=== PATIENT | male | born 1950 | race Caucasian/White ===

== ENCOUNTER 2022-12-13 07:40 | Outpatient (REF) | payer OTHER, MEDICARE, SELFPAY ==
--- NOTE | ~2022-12-13 | CT_ITS ---
EXAMINATION: CT ABDOMEN AND PELVIS WITH CONTRAST CLINICAL INFORMATION: Abdominal pain. Diverticulosis. COMPARISON: Previous CT scans most recent October 2019 TECHNIQUE: Multidetector volumetric images were obtained from the superior aspect of the liver through the pubic symphysis following administration 85 mL of Omnipaque 350 intravenous contrast. Sagittal and coronal reformatted images were obtained on the technologist's workstation. Oral contrast: Yes This CT examination was performed using dose optimization techniques as appropriate, variously including the following: *Automated exposure control *Adjustment of mA and/or kV according to patient size (this includes techniques or standardized protocols for targeted exams where dose is matched to indication/reason for exam; i.e. extremities or head) *Use of iterative reconstruction technique DLP: 600 mGy-cm FINDINGS: LUNG BASES: The visualized lung bases are unremarkable. LIVER, GALLBLADDER, AND BILIARY TREE: The liver is normal in size, shape, and attenuation. No focal hepatic lesion or biliary ductal dilatation is present. The gallbladder is unremarkable with no evidence of radiopaque gallstones, gallbladder wall thickening, or obvious pericholecystic inflammatory changes. PANCREAS: Unremarkable. SPLEEN: Unremarkable. ADRENAL GLANDS: Unremarkable. KIDNEYS AND URETERS: The kidneys are normal in size, shape, and attenuation. No hydronephrosis, hydroureter, or calculi seen. No perinephric stranding. BLADDER: Unremarkable. GASTROINTESTINAL TRACT: There is diverticulosis of the colon. There is a short segment of bowel wall thickening and increased enhancement of the transverse colon for example axial image 40 series 3 questionable for mild diverticulitis. No evidence of obstruction, perforation or abscess. Small and large bowel is otherwise normal. The appendix is normal. The stomach is normal ABDOMINAL WALL: No significant hernia is appreciated. LYMPH NODES: Normal. VASCULAR: Unremarkable. PELVIC VISCERA: The prostate gland is enlarged and protrudes into the base of the bladder. OSSEOUS STRUCTURES: There are degenerative changes of the spine. CT/CT abdomen pelvis w IV con IMPRESSION: Severe diverticulosis. Question mild diverticulitis of a short segment transverse colon. Fleischner guidelines were followed. Findings will be communicated by the [employer] work flow brazer resistance.
[2022-12-13] MEDS: iohexoL 350 MG/ML 100 ML INFUS..BTL IV (08:37)
[2022-12-13 10:00] LABS: GFR POC > 60
== END 2022-12-13 07:41 | disposition home or self-care (01) ==
LOC: HO.CT 07:40
PROVIDERS: Visit Provider Internal Medicine
DX: R10.84 Generalized abdominal pain (principal); K57.90 Diverticulosis of intestine, part unspecified, without perforation or abscess without bleeding
CPT/HCPCS: 74177; 82565; Q9967

== ENCOUNTER 2024-05-22 09:07 | Day surgery (SDC) | payer OTHER, MEDICARE, SELFPAY ==
[2024-05-20 15:45] VITALS: BMI 34.0
--- NOTE | 2024-05-21 08:31 | P.CONAN_ITS ---
Documented by User: Sheryl Merrill NP 05/21/24 08:33 HPI - Anesthesia Eval Consult details Narrative: 74yo M for Colonoscopy [facility] Past Medical History Medical History (Updated 05/20/24 @ 15:41 by Evelyn Sequeira, MECHE) Abdominal pain History of lipoma (~01/2023) History of diverticulosis Elevated PSA Hypothyroidism IBS (irritable bowel syndrome) HTN (hypertension) Asthma Surgical History Surgical History (Updated 05/20/24 @ 15:39 by Evelyn Sequeira, MECHE) Hx of umbilical hernia repair Hx of bilateral inguinal hernia repair Hx of spinal fusion (~05/2014) Hx of hernia repair Hx of prostate biopsy Hx of colonoscopy Social History Social History Are you a primary healthcare business analyst to a significant other at home: No Do you presently have visiting nurse or other home services: No Patient Tobacco Use Status: Former Tobacco user Use of substances other than those prescribed or required for medical reasons: No Have you been hit, kicked, punched, or otherwise hurt by someone within the past year? If so, by whom?: No Are you DNR?: No Advance Directives: No Advance Directives Information Provided: Yes Recently lost weight without trying: No Nutrition Risks: No Nutritional Risk Poor oral hygiene: No Meds Allergies Allergy/AdvReac Type Severity Reaction Status Date / Time No Known Allergies Allergy Verified 05/22/24 09:52 [No Known Allergies*] Home Medications ?Medication ?Instructions ?Recorded ?Confirmed ?Last Taken ?Type amlodipine 10 mg tablet 10 mg PO DAILY 05/20/24 05/22/24 05/22/24 History hyoscyamine sulfate 0.375 mg 0.375 mg PO BID PRN Abdominal 05/20/24 05/22/24 Unknown History tablet,extended release,12 hr Discomfort levothyroxine 100 mcg tablet 100 mcg PO DAILY 05/20/24 05/22/24 05/22/24 History lisinopril 20 mg tablet 20 mg PO DAILY 05/20/24 05/22/24 05/22/24 History tamsulosin 0.4 mg capsule 0.4 mg PO DAILY 05/20/24 05/22/24 05/22/24 History Exam Height,Weight and Vital Signs: Height 5 ft 5 in Weight 92.703 kg Assessment and Plan Assessment Anesthesia Assessment: Chart Reviewed Documented by User: Tej Cervantes MD 05/22/24 11:04 [facility] Past Medical History Medical History (Updated 05/20/24 @ 15:41 by Evelyn Sequeira, RN) Abdominal pain History of lipoma (~01/2023) History of diverticulosis Elevated PSA Hypothyroidism IBS (irritable bowel syndrome) HTN (hypertension) Asthma Family History Family history of problems with anesthesia: No Surgical History Surgical History (Updated 05/20/24 @ 15:39 by Evelyn Sequeira RN) Hx of umbilical hernia repair Hx of bilateral inguinal hernia repair Hx of spinal fusion (~05/2014) Hx of hernia repair Hx of prostate biopsy Hx of colonoscopy History of Problems with Anesthesia: No Social History Social History Are you a primary healthcare business analyst to a significant other at home: No Do you presently have visiting nurse or other home services: No Patient Tobacco Use Status: Former Tobacco user Use of substances other than those prescribed or required for medical reasons: No Have you been hit, kicked, punched, or otherwise hurt by someone within the past year? If so, by whom?: No Are you DNR?: No Advance Directives: No Advance Directives Information Provided: Yes Recently lost weight without trying: No Nutrition Risks: No Nutritional Risk Poor oral hygiene: No Meds Allergies Allergy/AdvReac Type Severity Reaction Status Date / Time No Known Allergies Allergy Verified 05/22/24 09:52 [No Known Allergies*] Home Medications ?Medication ?Instructions ?Recorded ?Confirmed ?Last Taken ?Type amlodipine 10 mg tablet 10 mg PO DAILY 05/20/24 05/22/24 05/22/24 History hyoscyamine sulfate 0.375 mg 0.375 mg PO BID PRN Abdominal 05/20/24 05/22/24 Unknown History tablet,extended release,12 hr Discomfort levothyroxine 100 mcg tablet 100 mcg PO DAILY 05/20/24 05/22/24 05/22/24 History lisinopril 20 mg tablet 20 mg PO DAILY 05/20/24 05/22/24 05/22/24 History tamsulosin 0.4 mg capsule 0.4 mg PO DAILY 05/20/24 05/22/24 05/22/24 History Exam Airway Mallampati Class: II TM Dist: >3cm Neck ROM: Full Heart: ok Lungs: ok Assessment and Plan Assessment Anesthesia Assessment: Anesthesia Plan Discussed Final Anesthetic Review Family History of Problems with Anesthesia: No History of Problems with Anesthesia: No NPO: Yes ASA Class: II Final Preanesthetic Review: No Changes in Pt Med Stat, Meds/Allgs Chart Reviewed, Consent Obtained/Reviewed and Anes Risks/Benef Reviewed Patient Risk: Low Procedure Risk: Low Anesthetic Plan Anesthetic Plan: MAC: and Agree w/ Assess. and Plan Disposition: Standard PACU
[2024-05-22 09:55] VITALS: BMI 32.1
[2024-05-22 10:15] VITALS: BP 134/77; PULSE 78; RESP 15; TEMP 35.9; O2SAT 99
[2024-05-22] MEDS: Lactated Ringers 1,000 ML 100 ML IVCONT (10:16)
[2024-05-22 12:00] VITALS: BP 85/52; PULSE 70; RESP 18; TEMP 36.2; O2SAT 97
--- NOTE | 2024-05-22 12:12 | PM.OP ---
Brief Operative Note Date of Service: 05/22/24 Pre-op diagnosis: Screening Post-op diagnosis: other (Colon mass, colon polyps) Procedure: Colonoscopy to the cecum with bx of mass and submucosal inking, cold snare polypectomy at 50cm, and hot snare polypectomy in ascending colon Surgeon: Ayo Fatima MD Anesthesia: MAC Was an Television News Photographer used for this Procedure?: No Estimated blood loss (mL): 2.0 Pathology: other (A. Colon polyp at 50cm B. Ascending colon polyp C. Mass from 60-70cm) Condition: stable Disposition: PACU
[2024-05-22 12:15] VITALS: BP 99/51; PULSE 69; RESP 18; O2SAT 97
[2024-05-22 12:30] VITALS: BP 110/75; PULSE 68; RESP 18; O2SAT 98
--- NOTE | 2024-05-22 12:30 | ECG_ITS ---
Test Reason : new onset afib Blood Pressure : / mmHG Vent. Rate : 068 BPM Atrial Rate : 000 BPM P-R Int : 000 ms QRS Dur : 086 ms QT Int : 410 ms P-R-T Axes : 000 080 062 degrees QTc Int : 435 ms Atrial fibrillation Abnormal ECG No previous ECGs available Referred By: Tej Cervantes Electronically Signed By:ELLIS ROMAN
[2024-05-22 12:45] VITALS: BP 131/72; PULSE 71; RESP 18; O2SAT 99
[2024-05-22 13:00] VITALS: BP 131/84; PULSE 76; RESP 18; TEMP 36.1; O2SAT 98
--- NOTE | 2024-05-23 00:02 | OP_ITS ---
DATE OF SERVICE: 05/22/2024 SURGEON: Ayo Fatima MD INDICATIONS: The patient presents for evaluation of colorectal cancer screening, personal history of tubular adenomas, and family history of colon cancer. Full consent has been obtained from him for this, including risks of bleeding and perforation. PREOPERATIVE DIAGNOSIS: POSTOPERATIVE DIAGNOSIS: PROCEDURE PERFORMED: Colonoscopy to the cecum with hot snare polypectomy, cold snare polypectomy, biopsies, and marking with submucosal ink x 2. ESTIMATED BLOOD LOSS: COMPLICATIONS: ANESTHESIA: Medication used, monitored anesthesia care. ASSISTANTS: SPECIMENS: PREOPERATIVE DIAGNOSES: Colorectal cancer screening, personal history of tubular adenoma of the colon, colorectal cancer family history. POSTOPERATIVE DIAGNOSES: Colorectal cancer screening, personal history of tubular adenomas of the colon, family history of colon cancer, colon mass, colon polyps, diverticulosis, and internal hemorrhoids. DESCRIPTION OF PROCEDURE: The patient was placed in left lateral decubitus position. The digital rectal exam revealed no abnormalities. The Olympus video pediatric colonoscope was entered into the rectum and advanced to a level of approximately 60 cm. Preparation in the sigmoid and descending colon was poor and advancement to this area was difficult both in relation to the poor prep and his significant diverticulosis. At 60 cm, I visualized a circumferential ulcerated mass, consistent with carcinoma. With some gentle to moderate pressure, I was able to get past it. The lesion itself appeared to be about 5-10 cm in length and was ulcerated with friability. Once I was past lesion, I was able to advance to the ascending colon. Again, the prep in the transverse colon and ascending colon was poor as well with a lot of solid stool. In the ascending colon, there was an approximately 1.5 cm flat, but raised polyp, which was removed by hot snare polypectomy. The polypectomy site appeared clean, without any sign of residual polyp nor bleeding. The polyp was grabbed with the retrieval net and brought out of the patient, but unfortunately only a small piece of polyp tissue remained in the retrieval net for pathology. The scope was re-entered in the rectum and was then advanced back to the site of the polypectomy. Again, advancement was difficult both in relation to the poor prep as well as the mass. I was able to advance into the cecum. The majority of the cecum was well visualized and appeared normal. The ileocecal valve appeared normal. The scope was then slowly withdrawn assessing all mucosal surfaces carefully. Again, the prep was significantly limited in multiple areas of the colon. There was significant diverticulosis from the ascending colon all the way to the sigmoid colon. The mass was again visualized. I placed a submucosal ink francisco just proximal and then just distal to the mass with good markings noted. I then obtained biopsies from the distal portion of the mass. At 50 cm there was an approximately 5 or 6 mm polyp, which was removed by cold snare polypectomy and recovered by suction. The polypectomy site appeared clean, without any sign of residual polyp nor any significant bleeding. In the rectum, the scope was retroflexed visualizing internal hemorrhoids, but no other pathology. The rectal mucosa appeared normal. The scope was straightened and withdrawn from the patient. Of note, in the portion of the colon just proximal to the mass there was an approximately 1 cm polyp. This was not removed given its location near the mass which will be removed surgically.. The patient tolerated the procedure well and was returned to recovery area in stable condition. IMPRESSION: 1. Colon mass consistent with carcinoma, status post biopsies and marking with submucosal ink. 2. Colon polyps. 3. Diverticulosis. 4. Poor prep. 5. Internal hemorrhoids. PLAN: The results of the pathology will be checked. Given the finding of the mass, he will have an outpatient CT scan of the abdomen and pelvis both for staging as well as to try to get a better idea as to the location of the mass. He will require surgical consultation as well. Also, of note, was the fact that the patient was noted to be in a well-controlled atrial fibrillation both prior to the procedure and during the procedure. This was apparently new for him. As such, he will require Cardiology evaluation preoperatively as well. He was advised to not use any aspirin or NSAIDs long-term for the time being given the findings of the mass. I shall check some laboratories including a CEA level. This has all been discussed in detail with the patient and his today. He should undergo repeat colonoscopy within 1 year for followup as well. MD KIT Ocampo/FRIDA / [phone] MTDLucas
== END 2024-05-22 13:33 | disposition home or self-care (01) ==
PROVIDERS: Visit Provider Internal Medicine
PROC: 0DJD8ZZ Inspection of Lower Intestinal Tract, Via Natural or Artificial Opening Endoscopic (ICD-10-PCS; CPT 45378; principal; 2024-05-22 10:30)
DX: Z12.11 Encounter for screening for malignant neoplasm of colon (principal); D12.2 Benign neoplasm of ascending colon; D12.5 Benign neoplasm of sigmoid colon; C18.6 Malignant neoplasm of descending colon; K57.30 Diverticulosis of large intestine without perforation or abscess without bleeding; K64.8 Other hemorrhoids; Z86.010 Personal history of colon polyps; Z80.0 Family history of malignant neoplasm of digestive organs; I10 Essential (primary) hypertension; J45.909 Unspecified asthma, uncomplicated; E03.9 Hypothyroidism, unspecified; Z87.891 Personal history of nicotine dependence; Z79.899 Other long term (current) drug therapy
CPT/HCPCS: 45385; 45380; 45381; 88305; 88341; 88342; 93005; J2704

== ENCOUNTER 2024-05-23 09:24 | Outpatient (REF) | payer OTHER, MEDICARE, SELFPAY ==
--- NOTE | ~2024-05-23 | CT_ITS ---
EXAMINATION: CT ABDOMEN AND PELVIS WITH CONTRAST CLINICAL INFORMATION: Abdominal pain-diverticulitis COMPARISON: CT abdomen pelvis 12/13/2022 TECHNIQUE: Multidetector volumetric images were obtained from the superior aspect of the liver through the pubic symphysis following administration 85 mL of Omnipaque 350 intravenous contrast. Sagittal and coronal reformatted images were obtained on the technologist's workstation. Oral contrast: No This CT examination was performed using dose optimization techniques as appropriate, variously including the following: *Automated exposure control *Adjustment of mA and/or kV according to patient size (this includes techniques or standardized protocols for targeted exams where dose is matched to indication/reason for exam; i.e. extremities or head) *Use of iterative reconstruction technique DLP: 551 mGy-cm FINDINGS: LUNG BASES: Bibasilar atelectasis is present, left greater than right. Extensive coronary calcium is present. The right hemidiaphragm is elevated LIVER, GALLBLADDER, AND BILIARY TREE: The liver is normal in size, shape, and attenuation. No focal hepatic lesion or biliary ductal dilatation is present. The gallbladder is unremarkable with no evidence of radiopaque gallstones, gallbladder wall thickening, or obvious pericholecystic inflammatory changes. PANCREAS: Unremarkable. SPLEEN: Unremarkable. ADRENAL GLANDS: There is an indeterminate 1.7 x 1.2 x 2.1 cm left adrenal mass arising from the medial limb. The right adrenal gland is normal. KIDNEYS AND URETERS: The kidneys are normal in size, shape, and attenuation. No hydronephrosis, hydroureter, or calculi seen. No perinephric stranding. BLADDER: Unremarkable. GASTROINTESTINAL TRACT: Colonic diverticula are present most prominent in the sigmoid and left colon but with scattered diverticula throughout. There is an apple core lesion seen proximal transverse colon with overhanging edges measuring about 5 cm in length. There is some ulceration of the mucosa at this level (3:51 and gilbert images). There is minimal inflammatory change seen in the pericolonic fat which makes diverticulitis less likely as an etiology. The small and large bowel are otherwise unremarkable. The appendix is unremarkable. ABDOMINAL WALL: No significant hernia is appreciated. LYMPH NODES: No retroperitoneal lymphadenopathy seen VASCULAR: Calcific atherosclerotic changes are present in the aorta and iliofemoral vessels. There is no evidence of an abdominal aortic aneurysm. PELVIC VISCERA: There is marked BPH. Seminal vesicles appear unremarkable. OSSEOUS STRUCTURES: Marked degenerative changes are present in the spine. No bony destructive lesions are seen to suggest metastatic disease. CT/CT abdomen pelvis w IV con IMPRESSION: 1. There is a 5 cm long apple-core lesion in the proximal transverse colon with overhanging edges and some ulceration of the mucosa. Findings are most consistent with a colonic neoplasm. Colonoscopy is recommended for further evaluation. 2. No evidence of pulmonary or hepatic metastatic disease. 3. Indeterminate 2.1 cm left adrenal mass. MRI is recommended for further evaluation. 4. Other incidental findings as described above. Fleischner guidelines were followed. Electronically signed by: Anival Rabago MD 05/23/2024 03:57 PM EDT
[2024-05-23 10:16] LABS: MANUAL DIFF FLAG NO
[2024-05-23 10:55] LABS: Basophils Percent Auto 0.5 % (0-2); Eosinophils Absolute Auto 0.1 X10*3/uL (0.0-0.4); Eosinophils Percent Auto 0.9 % (0-4); Hematocrit 46.6 % (42.0-52.0); Hemoglobin 15.8 g/dl (14.0-18.0); Imm Gran Abs Auto 0.02 X10*3/uL (0.00-0.03); Imm Gran Pct Auto 0.3 % (0.0-0.4); Lymphocytes Absolute Auto 1.9 X10*3/uL (1.2-4.9); Lymphocytes Percent Auto 28.7 % (20-40); Mean Corpuscular HGB Conc 33.9 g/dl (31.0-36.0); Mean Corpuscular Hemoglobin 29.9 pg (27.0-33.0); Mean Corpuscular Volume 88.1 fL (80.0-98.0); Mean Platelet Volume 9.4 fL (9.4-12.4); Monocytes Absolute Auto 0.5 X10*3/uL (0.1-1.2); Monocytes Percent Auto 7.5 % (2-11); Neutrophils Absolute Auto 4.1 x10*3/uL (2.0-8.3); Neutrophils Percent Auto 62.1 % (45-73); Platelet Count 212 X10*3/uL (160-400); Red Blood Count 5.29 X10*6/uL (4.60-5.80); Red Cell Distribution Width 13.2 % (11.0-16.0); White Blood Count 6.5 X10*3/uL (4.8-10.8)
[2024-05-23 11:33] LABS: Alanine Aminotransferase 14 U/L (0-40); Albumin Level 4.1 g/dL (3.5-5.0); Alkaline Phosphatase 71 U/L (39-117); Anion Gap 12 (12-20); Aspartate Amino Transferase 14 U/L (5-37); Bilirubin Direct 0.2 mg/dL (0.0-0.5); Bilirubin Total 0.6 mg/dL (0.0-1.0); Blood Urea Nitrogen 9 mg/dL (9-16); Calcium 9.9 mg/dL (8.4-10.2); Carbon Dioxide 25 mmol/L (22-29); Chloride 110 mmol/L (96-108); Estimated Glomerular Filt Rate > 60; Glucose Random 89 mg/dL (60-115); Potassium 3.8 mmol/L (3.3-5.1); Sodium 143 mmol/L (135-145); Total Protein 6.9 g/dL (6.5-8.0)
[2024-05-23] MEDS: iohexoL 350 MG/ML 100 ML INFUS..BTL 85 ML IV (12:16)
[2024-05-23] MEDS: Barium Sulfate Oral (Berry) 450 ML ORAL.SUSP 900 ML PO (12:16)
== END 2024-05-23 09:25 | disposition home or self-care (01) ==
LOC: HO.CT 09:24
PROVIDERS: Visit Provider Internal Medicine
DX: K63.9 Disease of intestine, unspecified (principal)
CPT/HCPCS: 36415; 74177; 80048; 80076; 82378; 85025; Q9967

== ENCOUNTER 2024-05-27 15:11 | Outpatient (AMB) | payer OTHER, MEDICARE, SELFPAY ==
--- NOTE | 2024-05-27 15:17 | A.OFFVIS_ITS ---
Vital Signs 05/27/24 15:24 Height 5 ft 6 in Intake Visit Reasons: Colonic Mass Intake Note: This patient was referred by for colonic mass. Pt c/o; reports no complaints. Abd/pelvis CT- 05/23/2024 Physical Therapy Asst Required: No Accompanied by: Other Relationship Allergies No Known Allergies [No Known Allergies*] Allergy (Verified 05/27/24 15:24) HPI HPI Colonic Mass: Details: 74-year-old male here for a new diagnosis of colon cancer. He had undergone colonoscopy with Dr. Fatima last 05/22/2024 for screening.. He was noted to have a circumferential ulcerated mass, about 5-10 cm long and with friability. Biopsies of this had shown an invasive adenocarcinoma. There was note of a small polyp adjacent to this proximally as well which was not removed. There were 2 other small polyps from the right colon which were removed and the path report had shown tubular adenomas without dysplasia. He does have a family history of colon cancer. He denies any significant GI complaints otherwise. He has a newly diagnosed atrial fibrillation. He is being worked up currently by his fruit or nut grower. He is also an ex-smoker but he says he quit about 2 years ago. [facility] Medical History (Updated 05/27/24 @ 16:12 by Kareem Hough MD) Colon cancer Abdominal pain History of lipoma (~01/2023) History of diverticulosis Elevated PSA Hypothyroidism IBS (irritable bowel syndrome) HTN (hypertension) Asthma Surgical History Hx of umbilical hernia repair Hx of bilateral inguinal hernia repair Hx of spinal fusion (~05/2014) Hx of hernia repair Hx of prostate biopsy Hx of colonoscopy Social History Are you a primary physician assistant primary care to a significant other at home: No Do you presently have visiting nurse or other home services: No Patient Tobacco Use Status: Former Tobacco user Review of Systems Const Denies chills and Denies fever(s) Card Denies chest pain, Denies dyspnea and Denies dyspnea on exertion Resp Denies cough, Denies dyspnea and Denies dyspnea on exertion GI Denies hematochezia and Denies change in bowel habits Denies hematuria and Denies difficulty urinating Musc Denies back pain and Denies limited range of motion Neuro Denies focal weakness and Denies convulsions Psych Denies depression and Denies mood swings Physical Exam Const General: comfortable and no acute distress Orientation/consciousness: patient oriented x3 Neck Neck: Yes no lymphadenopathy Resp Auscultation: clear to auscultation bilaterally Cardio Rhythm: regular rhythm GI Palpation (GI): Soft to palpation, nontender and no guarding Neuro General: patient oriented x3 Assessment & Plan Assessment & Plan (1) Colon cancer: Code(s): C18.9 - Malignant neoplasm of colon, unspecified Category: Medical Plan: He has a newly diagnosed colon cancer, invasive adenocarcinoma on the proximal transverse colon as described above. I have reviewed his CAT scan. There is does not seem to be any suggestion of metastatic disease. I explained to him that I am recommending an extended right colon resection, hand assisted laparoscopic. I explained to him the technique of this procedure. I had a long discussion with him and his about the risks including but not limited to bleeding, infections, staple line leak, injury to other organs, perioperative risks NV, strokes and blood clots, conversion to an open procedu re, as well as the benefits and alternatives. He says that he is going to about this. He actually just was diagnosed to have a new atrial fibrillation. His heart rate is within normal at this time. He has seen a fruit or nut grower and is supposed to have an echocardiogram tomorrow. He says that he will call me about his decision with regards to the surgery. Coding Level of Care Code New Pt Level 4 (66003) Diagnoses Colon cancer C18.9
== END 2024-05-27 15:54 | disposition home or self-care (01) ==
PROVIDERS: Visit Provider Surgery
DX: C18.9 Malignant neoplasm of colon, unspecified (principal)
CPT/HCPCS: 99204

== ENCOUNTER → 2024-05-27 15:11 | Outpatient (BNVA) | payer OTHER, MEDICARE, SELFPAY | PROVIDERS: Visit Provider Surgery ==

== ENCOUNTER 2025-07-02 06:21 | Day surgery (SDC) | payer OTHER, MEDICARE, SELFPAY ==
--- OUTSIDE RECORDS SUMMARY | 2024-02-07 07:30 | XMS_ITS ---
Author Organization [facility] Address [address] [place] [address] Drive [address] [place] [id number] Care Team Providers Care Asbestos Siding Installer Name Role Phone RUTHANN VIDAL Primary Care Provider Ayo Villafana [phone] REASON FOR VISIT colon screening Encounters Encounter Location Date Provider Diagnosis [facility] [place] Out[place] [address] [place] [phone] 02/07/2024 Ayo Fatima Plan Of Treatment Next Appt Details Provider Name:Ayo Fatima , 06/10/2025 10:00:00 AM, [address] [place] [address], [address], [place], [address], Provider Name:Ayo Fatima , 07/02/2025 07:30:00 AM, [address] [place] [address], [phone], Progress Notes * EVELIA ETIENNEDOB: [birth year] (75 yo M)Acc No.[id number]:02/07/2024 COLON WITH MAC Patient: ETIENNE SANTOS Provider: Jacquie Fatima MD :1950 A ge:73 Y S ex:Male Date:02/07/2024 Address:[address] [place] [address] [facility] [id number] Pcp:RUTHANN VIDAL Subjective: * Chief Complaints: * 1 . Colon screening. * Medical History: Objective: * Vitals: Assessment: Plan: * Treatment: * * The named appointment provid er may or may not be the originator of this progress note, and it is not deemed complete until electronically signed by the appointment provider. Sign off status: Pending * Provider: Jacquie Fatima MD Date: 0 02/07/2024 Generated for Yuliya canales/Wilberto/Francoisitting on: 0 05/13/2025 11:08 AM EDT
--- OUTSIDE RECORDS SUMMARY | 2024-05-22 06:30 | XMS_ITS ---
Author Organization [facility] Address [address] [place] [address] Care Team Providers Care Advertising Display Rotator Name Role Phone VIDALRUTHANN KAISER Primary Care Provider Ayo Villafana [phone] REASON FOR VISIT screening Problems Problem Type SNOMED Code ICD Code Onset Dates Problem Status W/U Status Risk Notes Problem Malignant neoplasm of colon (120283341) Malignant neoplasm of colon, unspecified (C18.9) Active confirmed Problem Diverticular disease of colon (370254481) Diverticulosis of large intestine without perforation or abscess without bleeding (K57.30) Active confirmed Encounters Encounter Location Date Provider Diagnosis [facility] [place] Outpatient [address] [place] [phone] 05/22/2024 Ayo Fatima Colon cancer scree rudy Z12.11 ; Malignant neoplasm of colon, unspecified C18.9 ; Colon polyps K63.5 ; Family history of colon cancer Z80.0 and Diverticulosis of large intestine without perforation or abscess without bleeding K57.30 Assessments Encounter Date Diagnosis (ICD Code) Assessment Notes Treatment Notes Treatment Clinical Notes Section Notes 05/22/2024 Colon cancer screening (ICD-10 - Z12.11) 05/22/2024 Malignant neoplasm of colon, unspecified (ICD-10 - C18.9) 05/22/2024 Colon polyps (ICD-10 - K63.5) 05/22/2024 Family history of colon cancer (ICD-10 - Z80.0) 05/22/2024 Diverticulosis of large intestine without perforation or abscess without bleeding (ICD-10 - K57.30) Plan Of Treatment Next Appt Details Provider Name:Ayo Fatima , 06/10/2025 10:00:00 AM, [address] [place] [address], [address], [place], [address], Provider Name:Ayo Fatima , 07/02/2025 07:30:00 AM, [address] [facility] , [place], [place], [phone], Progress Notes * ETIENNE ALTAMIRANODOB: [birth year] (75 yo M)Acc No.[id number]:05/22/2024 COLON WITH MAC Patient: ETIENNE SANTOS Provider: Jacquie Fatima MD :1950 A ge:74 Y S ex:Male Date:05/22/2024 Address:[address] [place], [place] [id number] Pcp:RUTHANN VIDAL Subjective: * Chief Complaints: * 1 . Screening. * Medical History: Objective: * Vitals: Assessment: * Assessment: 1. C olon cancer screening - Z12.11 (Primary) 2 . M alignant neoplasm of colon, unspecified - C18.9 3 . C olon polyps - K63.5 4 . F amily history of colon cancer - Z80.0 5 . D iverticulosis of large intestine without perforation or abscess without bleeding - K57.30 Plan: * Treatment: * Procedure Codes: 4 5385 LESION REMOVAL COLONOSCOPY, Modifiers: 33 , 46002 COLONOSCOPE, SUBMUCOUS INJ, Modifiers: 33 , 28201 COLONOSCOPY AND BIOPSY, Modifiers: 59 , 33 * * The named appointment provid er may or may not be the originator of this progress note, and it is not deemed complete until electronically signed by the appointment provider. Sign off status: Pending * Provider: Jcaquie Fatima MD Date: 0 05/22/2024 Generated for Yuliya canales/Wilberto/Francoisitting on: 05/13/2025 11:07 AM EDT
--- OUTSIDE RECORDS SUMMARY | 2025-05-13 11:07 | XMS_ITS | Patient Health Record ---
Author Organization [facility] Address [address] [place] [address] Care Team Providers Care Stroboroma Operator Name Role Phone RUTHANN VIDAL Primary Care Provider Ayo Villafana [phone] Allergies No Known Allergies Results Component Value Reference Range Notes Pathology (Not yet reviewed by provider) Interpretation: Performing Lab:[facility], [address] [place] [phone] Notes/Report: Complete Blood Count Auto Di ff Reviewed date:05/23/2024 04:52:15 PM Interpretation: Performing Lab:[facility], [address] [place] [phone] Notes/Report: White Blood Count 6.5 4.8-10.8 X10*3/uL Red Blood Count 5.29 4.60-5.80 X10*6/uL Hemoglobin 15.8 14.0-18.0 g/dl Hematocrit 46.6 42.0-52.0 % Mean Corpuscular Volume 88.1 80.0-98.0 fL Mean Corpuscular Hemoglobin 29.9 27.0-33.0 pg Mean Corpuscular HGB Conc 33.9 31.0-36.0 g/dl Red Cell Distribution Width 13.2 11.0-16.0 % Platelet Count 212 160-400 X10*3/uL Mean Platelet Volume 9.4 9.4-12.4 fL Neutrophils Percent Auto 62.1 45-73 % Imm Gran Pct Auto 0.3 0.0-0.4 % Lymphocytes Percent Auto 28.7 20-40 % Monocytes Percent Auto 7.5 2-11 % Eosinophils Percent Auto 0.9 0-4 % Basophils Percent Auto 0.5 0-2 % NRBC Pct Auto 0.0 0.0-0.2 /100WBC Neutrophils Absolute Auto 4.1 2.0-8.3 x10*3/u L Imm Gran Abs Auto 0.02 0.00-0.03 X10*3/uL Lymphocytes Absolute Auto 1.9 1.2-4.9 X10*3/u L Monocytes Absolute Auto 0.5 0.1-1.2 X10*3/uL Eosinophils Absolute Auto 0.1 0.0-0.4 X10*3/u L Basophils Absolute Auto 0.0 0.0-0.2 X10*3/uL NRBC Abs Auto 0.000 0.0-0.012 X10*3/uL Liver Panel Reviewed date:05/23/2024 12:34:29 PM Interpretation: Performing Lab:[address] [phone] Notes/Report: Bilirubin Total 0.6 0.0-1.0 mg/dL Bilirubin Direct 0.2 0.0-0.5 mg/dL Aspartate Amino Transferase 14 5-37 U/L Alanine Aminotransferase 14 0-40 U/L Total Protein 6.9 6.5-8.0 g/dL Albumin Level 4.1 3.5-5.0 g/dL Alkaline Phosphatase 71 39-117 U/L Basic Metabolic Panel Reviewed date:05/23/2024 12:34:17 PM Interpretation: Performing Lab:[address] [phone] Notes/Report: Sodium 143 135-145 mmol/L Potassium 3.8 3.3-5.1 mmol/L Chloride 110 96-108 mmol/L Carbon Dioxide 25 22-29 mmol/L Anion Gap 12 12-20 Blood Urea Nitrogen 9 9-16 mg/dL Creatinine 1.06 0.5-1.4 mg/dL Estimated Glomerular Filt Rate > 60 NOTE: For -Bahamian individuals, multiply the result by 1.210. Chronic Kidney Disease: Estimated GFR < 60 mL/min/1.73m2 Severe Kidney Disease: Estimated GFR < 15 mL/min/1.73m2 Glucose Random 89 60-115 mg/dL Calcium 9.9 8.4-10.2 mg/dL Carcinoembryonic Antigen Reviewed date:05/23/2024 12:33:54 PM Interpretation: Performing Lab:[facility], [address] [place] [phone] Notes/Report: Carcinoembryonic Antigen 5.90 CEA Reference Range: 93.4% Non-Smokers = 0.0-3.0 ng/mL 95.6% Smokers = 0.0-5.0 ng/mL CEA Methodology: Sampa Alinity i Chemiluminescent Microparticle Immunoassay (CMIA) CEA testing can have significant value in monitoring of patients with diagnosed malignancies in whom changing concentrations of CEA are observed. Values obtained with different assay methods cannot be used interchangeably. CT abdomen pelvis w con (Not yet reviewed by provider) Interpretation: Performing Lab: Notes/Report: [address] [address] [address] Scan Report Signed with Addenda Patient: Stephen Altamirano MR#: [id number] : 1950 Acct:[id number] Age/Sex: 74 / M ADM Date: 05/23/24 Loc: HO.CT Attending Dr: Ayo Fatima MD Ordering Physician: Ayo Fatima MD Date of Service: 05/23/24 Procedure(s): CT abdomen pelvis w IV con Accession Number(s): [id number] cc: Ayo Fatima MD ADDENDUM ADDENDUM #1 Results Acknowledgement: Results received by Dr. Fatima and confirmed results with Sheryl Baez, director medical surgical, at 4:05 PM. Kary Paige, 05/23/2024 4:06 PM Electronically signed by: Anival Rabago MD 05/24/2024 09:37 AM EDT Addendum Dictated By: Anival Rabago MD Addendum Signed By: <Electronically signed by Anival Rabago MD in OV> 05/24/24936 Addendum Cosigned By: DD/ TD/TT: 05/23/24 EXAMINATION: CT ABDOMEN AND PELVIS WITH CONTRAST CLINICAL INFORMATION: Abdominal pain-diverticulitis COMPARISON: CT abdomen pelvis 12/13/2022 TECHNIQUE: Multidetector volumetric images were obtained from the superior aspect of the liver through the pubic symphysis following administration 85 mL of Omnipaque 350 intravenous contrast. Sagittal and coronal reformatted images were obtained on the technologist's workstation. Oral contrast: No This CT examination was performed using dose optimization techniques as appropriate, variously including the following: *Automated exposure control *Adjustment of mA and/or kV according to patient size (this includes techniques or standardized protocols for targeted exams where dose is matched to indication/reason for exam; i.e. extremities or head) *Use of iterative reconstruction technique DLP: 551 mGy-cm FINDINGS: LUNG BASES: Bibasilar atelectasis is present, left greater than right. Extensive coronary calcium is present. The right hemidiaphragm is elevated LIVER, GALLBLADDER, AND BILIARY TREE: The liver is normal in size, shape, and attenuation. No focal hepatic lesion or biliary ductal dilatation is present. The gallbladder is unremarkable with no evidence of radiopaque gallstones, gallbladder wall thickening, or obvious pericholecystic inflammatory changes. PANCREAS: Unremarkable. SPLEEN: Unremarkable. ADRENAL GLANDS: There is an indeterminate 1.7 x 1.2 x 2.1 cm left adrenal mass arising from the medial limb. The right adrenal gland is normal. KIDNEYS AND URETERS: The kidneys are normal in size, shape, and attenuation. No hydronephrosis, hydroureter, or calculi seen. No perinephric stranding. BLADDER: Unremarkable. GASTROINTESTINAL TRACT: Colonic diverticula are present most prominent in the sigmoid and left colon but with scattered diverticula throughout. There is an apple core lesion seen proximal transverse colon with overhanging edges measuring about 5 cm in length. There is some ulceration of the mucosa at this level (3:51 and gilbert images). There is minimal inflammatory change seen in the pericolonic fat which makes diverticulitis less likely as an etiology. The small and large bowel are otherwise unremarkable. The appendix is unremarkable. ABDOMINAL WALL: No significant hernia is appreciated. LYMPH NODES: No retroperitoneal lymphadenopathy seen VASCULAR: Calcific atherosclerotic changes are present in the aorta and iliofemoral vessels. There is no evidence of an abdominal aortic aneurysm. PELVIC VISCERA: There is marked BPH. Seminal vesicles appear unremarkable. OSSEOUS STRUCTURES: Marked degenerative changes are present in the spine. No bony destructive lesions are seen to suggest metastatic disease. CT/CT abdomen pelvis w IV con IMPRESSION: 1. There is a 5 cm long apple-core lesion in the proximal transverse colon with overhanging edges and some ulceration of the mucosa. Findings are most consistent with a colonic neoplasm. Colonoscopy is recommended for further evaluation. 2. No evidence of pulmonary or hepatic metastatic disease. 3. Indeterminate 2.1 cm left adrenal mass. MRI is recommended for further evaluation. 4. Other incidental findings as described above. Fleischner guidelines were followed. Electronically signed by: Anival Rabago MD 05/23/2024 03:57 PM EDT RP Dictated By: Anival Rabago MD Signed By: <Electronically signed by Anival Rabago MD in OV> 05/23/24 1557 DD/ 1208 TD/TT: 05/23/24 1216 Wool Broker: SS Reason For Referral No Information Medications Medication SIG (Take, Route, Frequency, Duration) Notes Start Date End Date Status LORazepam 0.5 MG 1 tablet at bedtime as needed Orally Once a day only before scans Active Tamsulosin HCl 0.4 MG 1 capsule Orally Once a day Active Levothyroxine Sodium 100 MCG 1 tablet on an empty stomach in the morning Orally Once a day for 30 day(s) Unknown Prochlorperazine Maleate 10 MG 1 tablet as needed Orally Three times a day Active amLODIPine Besylate 10 MG 1 tablet Orally Once a day for 30 days Unknown Acetaminophen 325 MG 1 capsule as needed Orally every 6 hrs as needed Active Lisinopril 20 MG 1 tablet Orally Once a day for 30 day(s) Unknown Apixaban 5 MG as directed Orally Active Albuterol Sulfate HFA 108 (90 Base) MCG/ACT 1 puff as needed Inhalation every 4 hrs Active Loperamide HCl 2 MG 1 capsule as needed Orally Four times a day Active Calcium Carbonate 1250 (500 Ca) MG 1 tablet with food Orally Twice a day Active Pegfilgrastim-jmdb 6 MG/0.6ML 0.6 mL for 2 doses Subcutaneous Active Hyoscyamine Sulfate 0.125 MG TAKE 1 OR 2 TABLETS BY MOUTH 3 TIMES A DAY NEEDED FOR ABDOMINAL CRAMPS for 90 Active Ondansetron HCl 8 MG 1 tablet as needed Orally Once a day Active Immunizations Vaccine Route Administration Date Status Comme nts Influenza Unknown 05/28/2018 Administered Influenza Unknown 05/17/2022 Administered Social History Tobacco Use: Social History Observation Description Date Details (start date - stop date) Former Smoker NA - NA Tobacco Use/Smoking Question Answer Notes Patient is a former smoker Alcohol Screen Question Answer Notes Did you have a drink contain ing alcohol in the past year? Yes How often did you have a dri nk containing alcohol in the past year? 2 to 3 times a week (3 points) How many drinks did you have on a typical day when you were drinking in the past year? 1 or 2 drinks (0 point) How often did you have 6 or more drinks on one occasion in the past year? Never (0 point) Points 3 Interpretation Negative Section Notes: Smoker 1 ppd No sig alcohol Smoker 1 ppd No sig alcohol Problems Problem Type SNOMED Code ICD Code Onset Dates Problem Status W/U Status Risk Notes Problem 856009841 Colon cancer screening (Z12.11) Active confirmed Problem 78851893 Rectal bleeding (K62.5) Active confirmed Problem 990893338 Encounter for screening for malignant neoplasm of colon (Z12.11) Active confirmed Problem 752174834 History of adenomatous polyp of colon (Z86.010) Active confirmed Problem Malignant neoplasm of colon (029336546) Malignant neoplasm of colon, unspecified (C18.9) Active confirmed Problem Diverticular disease of colon (556701631) Diverticulosis of large intestine without perforation or abscess without bleeding (K57.30) Active confirmed Problem 817465827 Diverticulosis (K57.90) Active confirmed Problem 513701379 Abdominal pain, left lower quadrant (R10.32) Active confirmed Problem History of malignant neoplasm of colon (553755267) Personal history of colon cancer (Z85.038) Active confirmed Problem Mass of colon (finding) (630003088) Colonic mass (K63.9) Active confirmed Problem 842219789 Abdominal pain, generalized (R10.84) Active confirmed Problem 05458533 Irritable bowel syndrome, unspecified type (K58.9) Active confirmed Problem History of polyp of colon (situation) (107746336) Personal history of colonic polyps (Z86.0100) Active confirmed Procedures Procedure Date Ordered Date Performed Result Body Sit e COLONOSCOPY 01/01/2025 N/A Encounters Encounter Location Date Provider Diagnosis [facility] [address]patient [address] [place], [place] [id number] 05/22/2024 Ayo Fatima Colon cancer screeni ng Z12.11 ; Malignant neoplasm of colon, unspecified C18.9 ; Colon polyps K63.5 ; Family history of colon cancer Z80.0 and Diverticulosis of large intestine without perforation or abscess without bleeding K57.30 [facility] [address] [place] [phone] 05/22/2024 Ayo Fatima Colonic mass K63.9 [facility] [address] [place] [phone] 05/24/2024 Ayo Fatima [facility] [address] [place] [phone] 06/07/2024 Ayo Fatima [facility] [address] [place] [phone] 07/23/2024 Ayo Fatima [facility] [address] [place] [phone] 09/11/2024 Ayo Fatima [facility] [address] [place] [phone] 09/11/2024 Ayo Fatima [facility] [address] [place] [phone] 12/27/2024 Ayo Fatima [facility] [address] [place] [id number] 12/31/2024 Ayo Fatima [facility] [address] [place] [phone] 01/01/2025 Ayo Fatima Personal history of colon cancer Z85.038 ; Personal history of colonic polyps Z86.0100 and Encounter for screening for malignant neoplasm of colon Z12.11 [facility] [address] [place] [phone] 01/02/2025 Ayo Fatima Assessments Encounter Date Diagnosis (ICD Code) Assessment Notes Treatment Notes Treatment Clinical Notes Section Notes 05/22/2024 Colon cancer screening (ICD-10 - Z12.11) 05/22/2024 Malignant neoplasm of colon, unspecified (ICD-10 - C18.9) 05/22/2024 Colonic mass (ICD-10 - K63.9) 01/01/2025 Personal history of colon cancer (ICD-10 - Z85.038) 01/01/2025 Personal history of colonic polyps (ICD-10 - Z86.0100) 05/22/2024 Colon polyps (ICD-10 - K63.5) 01/01/2025 Encounter for screening for malignant neoplasm of colon (ICD-10 - Z12.11) 05/22/2024 Family history of colon cancer (ICD-10 - Z80.0) 05/22/2024 Diverticulosis of large intestine without perforation or abscess without bleeding (ICD-10 - K57.30) Plan Of Treatment Pending Test Test Name Order Date COLONOSCOPY 01/01/2025 CHEM 7 PROFILE 11/28/2022 CHEM 7 PROFILE 05/22/2024 LIVER PROFILE 11/28/2022 LIVER PROFILE 05/22/2024 CRP 11/28/2022 CEA 05/22/2024 CBC w DIFF 11/28/2022 CBC w DIFF 05/22/2024 CBC w DIFF 05/15/2023 SED RATE (ESR) 11/28/2022 URINALYSIS + MICROSCOPIC, CLEAN CATCH CT ABD & PELVIS WITH CONTRAST 05/22/2024 CT ABD & PELVIS WITH CONTRAST 11/28/2022 Amylase 11/28/2022 Lipase 11/28/2022 Pathology 05/22/2024 CT abdomen pelvis w con 05/23/2024 Future Test Test Name Order Date COLONOSCOPY 09/11/2018 COLONOSCOPY 05/17/2023 Next Appt Details Provider Name:Ayo Fatima , 06/10/2025 10:00:00 AM, [address] [place] [address], [address], [place], [address], Provider Name:Ayo Fatima , 07/02/2025 07:30:00 AM, [address] [place] [address] , [place], [place], [id number], Insurance Providers Payer Name Payer Address Payer Phone Subscriber Number Group Number Insured Name Patient Relationship to Insured Coverage Start Date Coverage End Date [facility] [address] ARIANNA ALEJANDRINA [id number] [phone] [id number] STEPHEN POLLACK Self - patient is the insured Medical (General) History Medical History History ICD Code Asthma Hypertension Denies MD,DM,CVA,Lung disease,renal dise ase Colonoscopy 04/2011--1 small tubular adenoma removed; neg colonoscopy in 1999 and 2005 except for hyperplastic polyp; he has diffuse diverticulosis from the sigmoid colon to the ascending colon. IBS Hypothyroidism Elevated PSA--having a prostate biopsy i n 09/2018 Colonoscopy in October of 2018 with a small tubular adenoma removed; his known significant sigmoid diverticular disease was again noted, as well as diffuse diverticular disease involving the more proximal colon. CT scan in November of 2022 bernard sed a question of some mild diverticulitis involving a portion of the transverse colon. He did not need antibiotics at that time as his symptoms resolved spontaneously. Surgical History Surgery Date(Month/Year) Hernia as a child Spinal fusion--2 discs removed 05/2014 Bilateral Inguinal Hernia and Umbilical Hernia Lipoma on back 01/2023
--- OUTSIDE RECORDS SUMMARY | 2025-05-13 11:07 | XMS_ITS | Encounter Summary ---
Author Organization [facility] Address [address] [place] [id number] Phone Care Team Providers Care Audiometrist Name Role Phone Self-Referred, Patient Unavailable Unavailab Timothy Barahona MD Unavailable Karissa Theodore MD Primary Care Provider Jacob Reza MD Unavailable [phone] Gaye Rao RN Unavailable [email or web address] [email or web address] Tiffanie Vences RN Unavailable [email or web address] Encounter Details Date Type Department Care Team (Late st Contact Info) Description 12/31/2024 Procedure Pass [facility] Angio Interventional Radiology [address] [place] [id number] Social History Tobacco Use Types Packs/Day Years Used Date Smoking Tobacco: Former Cigarettes 2 15 2 021 - 1985 Cigars Smokeless Tobacco: Current Comments:Uses [employer]SHA[employer] nicotine pouch daily Alcohol Use Standard Drinks/Week Comments Yes 3 (1 standard drink = 0.6 oz pur e alcohol) Child or Family Care Answer Date Record ed Do you have problems with on e of the following making it difficult for you to work, study, or receive health care? No 06/06/2024 Education Answer Date Recorded Are you interested in more education? Not on adams e 05/30/2024 Are you concerned about learning? Not on file 05/30/2024 No 05/30/2024 No 05/30/2024 Food Answer Date Recorded Within the past 6 months we worried whether our food would run out before we got money to buy more. Never True 07/12/2024 Within the past 6 months the food we bought just didn't last and we didn't have enough money to get more. Never True Residential Stability Answer Date Recor ded What is your housing situation today? I have arleth jones 07/12/2024 How many times have you move d in the past 12 months? Zero (I did not move) 07/12/2024 Paying for Meds Answer Date Recorded Do you have trouble paying for medicines? No 07/12/2024 Paying Utility Bills Answer Date Record ed Do you have trouble paying your heating or elect ricity bill? No 06/06/2024 Transportation Answer Date Recorded Has the lack of transportati on kept you from medical appointments or from getting medications? No 07/12/2024 Digital Access Answer Date Recorded No 07/12/2024 Yes 07/12/2024 Do you have reliable internet access at home? Ye s 07/12/2024 Do you have a device (e.g., phone, tablet, computer) with a working camera? Yes 07/12/2024 Intimate Partner Violence Answer Date R ecorded Are you denied basic needs s uch as food, clothing, or medical care? No 10/25/2024 In the past 12 months have y ou been in a relationship with a person who hurts, threatens, or tries to control you? No 10/25/2024 Are you denied basic needs s uch as food, clothing, or medical care? No 10/25/2024 In the past 12 months have y ou been in a relationship with a person who hurts, threatens, or tries to control you? No 10/25/2024 Sex and Gender Information Value Date Recorded Sex Assigned at Not on file Legal Sex Male 3:21 PM EDT Gender Identity Not on file Sexual Orientation Not on file documented as of this encounter Plan of Treatment Upcoming Encounters Date Type Department Care Team (Late st Contact Info) Description 07/15/2025 8:10 AM EST Blood Draw Laboratory Services, [facility] [place] [facility] [place] [address] [place] [address] Jacob Reza MD [address] [place] [phone] [email or web address] 07/15/2025 9:00 AM EST Office Visit [facility], [facility] [place] [facility] [place] [address] [address] Jacob Reza MD [address] [place] [address] [email or web address] Scheduled Procedures Name Priority Associated Diagnoses Date/Ti me COLECTOMY RIGHT COMPLEX 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 Visit Diagnoses Not on filedocumented in this encounter Care Teams Audiometrist Relationship Specialty Start Date End Date Karissa Theodore MD [address] [place] [id number] PCP - General Internal Medicine 06/13/24 Self-Referred, Patient 05/28/24 Timothy Trottre MD [address] [place] [address] [email or web address] Surgery 05/30/24 Jacob Reza MD [address] [place] [address] [email or web address] Medical Oncology 07/29/24 Gaye Rao RN [address] [place] [address] [email or web address] Primary Infusion Nurse 10/09/24 Tiffanie Vences, MECHE [address] [place] [address] [email or web address] Associate Infusion Nurse 11/19/24 documented as of this encounter Additional Source Comments The information contained in this document represents components of the legal health record. It is not the complete legal health record.[facility]
--- OUTSIDE RECORDS SUMMARY | 2025-05-13 11:08 | XMS_ITS | Clinical Summary ---
Author Organization [facility] Address [address] [place] [address] [place] [address] Phone Care Team Providers Care Cherry Cutter Name Role Phone Self-Referred, Patient Unavailable Unavailab Timothy Barahona MD Unavailable Karissa Theodore MD Primary Care Provider Jacob Reza MD Unavailable [phone] Gaye Rao RN Unavailable [email or web address] [email or web address] Tiffanie Vences RN Unavailable [email or web address] Allergies Active Allergy Reactions Criticality Noted Date Comments Other Sneezing,Wheezing Medium 07/08/2024 Environmental, cats Medications levothyroxine (SYNTHROID, LEVOTHROID) 100 MCG tablet Take 100 mcg by mouth every morning. Active albuterol (VENTOLIN HFA) 90 mcg/actuation inhaler Inhale 1 puff into the lungs every 6 (six) hours as needed for wheezing. Active fluticasone propionate (FLONASE) 50 mcg/actuation nasal spray 50 mcg by Nasal route daily. 4 Active tamsulosin (FLOMAX) 0.4 mg Cap Take 0.4 mg by mouth daily. Active apixaban (ELIQUIS) 5 mg tablet Take 1 tablet (5 mg total) by mouth 2 (two) times a day. 180 tablet 4 Active lisinopril (PRINIVIL,ZESTRIL ) 20 MG tablet Take 1 tablet (20 mg total) by mouth daily. 4 Active amLODIPine (NORVASC) 10 MG tablet Take 1 tablet (10 mg total) by mouth daily. 4 Active acetaminophen (TYLENOL) 325 mg tablet Take 2 tablets (650 mg total) by mouth every 6 (six) hours as needed. 4 Active LORazepam (ATIVAN) 0.5 MG tablet Take 1 tab po 1 hour prior to scan. May repeat 1 tab po 1/2 hour later, if necessary. Dont drive after taking 5 tablet 5 Active loperamide (IMODIUM) 2 mg capsule Take 4 mg at 1st loose stool, then 2 mg after ea loose stool until max - 8 tabs/24 hr. Call provider for unrelieved diarrhea. 90 capsule 5 Active pegfilgrastim-jmd b (FULPHILA) 6 mg/0.6 mL subcutaneous injection syringeIndication s:Chemotherapy induced neutropenia Inject 0.6 mL (6 mg total) under the skin every 14 (fourteen) days. Give the entire syringe. 4.2 mL 3 5 Active Active Problems Patient Care Coordination No te Formatting of this note migh t be different from the original. [place] : [facility]_ [phone] Fax- [phone] Problem Noted Date Diagnosed Date Vitamin D deficiency 09/10/2024 Rectal bleeding 09/10/2024 Malignant neoplasm of colon 09/10/2024 Irritable bowel syndrome 09/10/2024 Hypothyroidism 09/10/2024 Hyperlipidemia 09/10/2024 History of adenomatous polyp of colon 09/10/2024 Generalized abdominal pain 09/10/2024 Screening for lung cancer 09/10/2024 Elevated PSA 09/10/2024 Diverticulosis 09/10/2024 Diverticulitis 09/10/2024 Mass of colon 09/10/2024 Class 1 obesity 09/10/2024 Accelerated essential hypertension 09/10/2024 Abdominal pain, left lower quadrant 09/10/2024 Benign prostatic hyperplasia 09/10/2024 S/P right colectomy 07/12/2024 Atrial fibrillation and flutter 05/24/2024 Overview (09/10/2024): A fib found at colonoscopy 2023 Encounters Date Type Department Care Team Description 04/01/2025 11:30 AM EDT Office Visit [facility], [facility] at [address] [address] Darleen Evans CNP Malignant neoplasm of transverse colon (Primary Dx) 04/01/2025 7:35 AM EDT - 04/01/2025 11:59 PM EDT Hospital Encounter [address] [address] Jacob Reza MD Discharge Disposition: Home or Self Care 12/31/2024 Procedure Pass [address] [address] from Last 3 Months Immunizations Immunization Administration Dates Next Due Influenza High-Dose Trivalen t Preservative Free IM 07/24/2024(Deferred: Patient Refused) Social History Tobacco Use Types Packs/Day Years Used Date Smoking Tobacco: Former Cigarettes 2 15 2 021 - 1985 Cigars Smokeless Tobacco: Current Tobacco Cessation:Ready to Q uit: Not Asked; Counseling Given: Not Answered Comments:Uses [employer]SHAWN nicotine pouch daily Alcohol Use [...] your housing situation today? I have arleth sing 07/12/2024 How many times have you move [...] on file Sexual Orientation Not on file Last Filed Vital Signs Vital Sign Reading Time Taken Comments Blood Pressure 108/55 04/01/2025 8:47 AM EDT Pulse 73 04/01/2025 8:47 AM EDT Temperature 36.1 C (97 F) 04/01/2025 8:47 AM EDT Respiratory Rate 16 04/01/2025 8:47 AM EDT Oxygen Saturation 98% 04/01/2025 8:47 AM EDT Inhaled Oxygen Concentration 21.7% 05/2025 10:45 AM EST Weight 92.4 kg (203 lb 11.3 oz) 04/01/2025 8:47 AM EDT dfci Height 162.4 cm (5' 3.94 ) 10/08/2024 9:16 AM ES T Body Mass Index 35.03 10/08/2024 9:16 AM EST Plan of Treatment Upcoming Encounters Date Type Department Care Team (Late st Contact Info) Description 07/15/2025 8:10 AM EST Blood Draw Laboratory Services, [facility] [place] [address] [address] Jacob Reza MD [address] [place] [address] [email or web address] [facility] 07/15/2025 9:00 AM EST Office Visit [facility], [facility] at [address] [address] Jacob Reza MD [address] [place] [address] [email or web address]. [facility] Scheduled Procedures Name Priority Associated Diagnoses Date/Ti me COLECTOMY RIGHT COMPLEX Malignant neoplasm of transverse colon Health Maintenance Due Date Last Done Comments LIPID PANEL 1952 TSH LEVEL 1952 DEPRESSION SCREENING 1964 HEPATITIS C SCREENING 1970 PNEUMOCOCCAL VACCINES (50+ years) (1 of 2 - PCV) 1971 COLOGUARD 1997 COLONOSCOPY 1997 COLORECTAL CANCER SCREENING 1997 FIT TEST 1997 FOBT 1997 SIGMOIDOSCOPY 1997 VIRTUAL COLONOSCOPY 1997 RSV VACCINE (1 - Risk 60-74 years 1-dose series) 2012 ZOSTER VACCINES (2 of 2) 08/06/2020 06/11/2020 INFLUENZA VACCINE (#1) 2025 , 06/19/2020, 05/21/2018 COVID-19 VACCINE ( season) 2025 06/02/2021, 11/03/2020, 10/12/2020 BLOOD PRESSURE 10/02/2025 04/01/2025 CREATININE LEVEL 04/01/2026 04/01/2025, 01/2025, 12/17/2024, Additional history exists POTASSIUM LEVEL 04/01/2026 04/01/2025, 05/0 01/2025, 12/17/2024, Additional history exists Adult Td,Tdap Booster 05/21/2028 05/21/2018 SMOKING STATUS SCREENING (Once After 26 Yrs) Completed 10/08/2024 ABDOMINAL AORTIC ANEURYSM (AAA) SCREENING Completed 12/24/2024 HEPATITIS A VACCINES Aged Out No long er eligible based on patient's age to complete this topic HIB VACCINES Aged Out No longer eligi ble based on patient's age to complete this topic MENINGOCOCCAL VACCINES (ACWY) Aged Out No longer eligible based on patient's age to complete this topic MENINGOCOCCAL VACCINES (B) Aged Out N o longer eligible based on patient's age to complete this topic Medical Devices Explanted Type Area Kitchen Food Server Device Identifier Shelf Expiration Date Model / Serial / Lot Port Dignity 6.6fr Infusion Mid Size Attachable Silicone Filled Suture Hole - [id number] Implanted:Qty: 1 on 10/07/2024 by Jules Hartmann PA-C at [facility] Explanted:Qty: 1 on 01/21/2025 by Tiffanie Jaeger PA-C Right: Chest Wall [employer] 12/25/2028 [id number] / / [id number] Description:Rt sided SL mid sized port Procedures Procedure Name Priority Date/Time Associated Diagnosis Comments CT CHEST WITHOUT CONTRAST Routine 04/01/2025 8:31 AM EDT Pneumonitis COMPREHENSIVE METABOLIC PANEL Routine 04/01/2025 7:34 AM EDT Malignant neoplasm of transverse colon HC BLOOD COUNT COMPLETE AUTO&AUTO DIFRNTL WBC Routine 04/01/2025 7:34 AM EDT Malignant neoplasm of transverse colon CARCINOEMBRYONIC ANTIGEN (CEA) Routine 04/01/2025 7:34 AM EDT Malignant neoplasm of transverse colon CT ABDOMEN/PELVIS WITH CONTRAST Routine 12/24/2024 4:19 PM EDT Malignant neoplasm of colon, unspecified part of colon from Last 3 Months or Most Recently Relevant to Health Maintenance Results * CT CHEST WITHOUT CONTRAST (04/01/2025 8:31 AM EDT) Anatomical Region Laterality Modality Chest Computed Tomogra phy Other 04/01/2025 10:1 5 AM EDT Impressions 04/01/2025 11:27 AM EDT 1. Interval decrease in density and conspicuity of right upper and bilateral lower lobe peribronchovascular consolidative and groundglass opacities, likely representing evolving organizing pneumonia. 2. No evidence of metastatic disease in the chest. ATTESTATION: Winnie Gonzales, as teaching physician have reviewed the images, if any, for this patient's exam, and if necessary, have edited the report originally created by Lisa Bender. 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 He completed 6 cycles of adjuvant FOLFOX on 12/19/24. TECHNIQUE: Multidetector CT of the chest was performed without intravenous contrast using tailored dose modulation. COMPARISON: CT CHEST WITH CONTRAST FINDINGS: Devices/Tubes/Lines: Interval removal of right IJ port catheter. Lungs: Interval decrease in previously noted right upper lobe and bilateral lower lobe predominant peribronchovascular consolidative and groundglass opacities (5:101) (5:334). The opacity in the right upper lobe has a reversed halo appearance (5:140). Mild subpleural reticulations and interlobular septal thickening in both lower lobes. Central airways are patent. Mild diffuse bronchial wall thickening. Pleura: No pleural effusion or pneumothorax. Mediastinum: Heart size is normal. No pericardial effusion. Mild aortic valve calcification. Minimal mitral annular calcification. Atherosclerosis of the thoracic aorta. Atrophic thyroid gland. Moderate amount of coronary calcifications. Lymph Nodes: No enlarged supraclavicular, axillary, mediastinal, or hilar lymph nodes. Upper Abdomen: Colonic diverticulosis. Thickening of bilateral adrenal glands. Chest Wall: Mild subcutaneous fat stranding in the right anterior chest wall (3:24), likely related to the removal of port catheter. Bones: Multilevel degenerative changes of the thoracic spine and bilateral glenohumeral joints. Bones are osteopenic. No suspicious lytic or blastic lesions. Procedure Note Winnie Thibodeaux MD - 04/01/2025 CT CHEST WITHOUT CONTRAST Referring clinician's provided indication for this examination in [facility]: *Idiopathic nonspecific interstitial pneumonitis Review of the Electronic Medical Record reveals an additional history of:History of transverse colon cancer status post laparoscopic rightcolectomy on July 12, 2024. He completed 6 cycles of adjuvant FOLFOXon 12/19/24. TECHNIQUE: Multidetector CT of the chest was performed without intravenouscontrast using tailored dose modulation. COMPARISON: CT CHEST WITH CONTRAST FINDINGS: Devices/Tubes/Lines: Interval removal of right IJ port catheter. Lungs: Interval decrease in previously noted right upper lobe andbilateral lower lobe predominant peribronchovascular consolidative andgroundglass opacities (5:101) (5:334). The opacity in the right upper lobehas a reversed halo appearance (5:140). Mild subpleural reticulations andinterlobular septal thickening in both lower lobes. Central airways arepatent. Mild diffuse bronchial wall thickening. Pleura: No pleural effusion or pneumothorax. Mediastinum: Heart size is normal. No pericardial effusion. Mild aorticvalve calcification. Minimal mitral annular calcification. Atherosclerosisof the thoracic aorta. Atrophic thyroid gland. Moderate amount of coronarycalcifications. Lymph Nodes: No enlarged supraclavicular, axillary, mediastinal, or hilarlymph nodes. Upper Abdomen: Colonic diverticulosis. Thickening of bilateral adrenalglands. Chest Wall: Mild subcutaneous fat stranding in the right anterior chestwall (3:24), likely related to the removal of port catheter. Bones: Multilevel degenerative changes of the thoracic spine and bilateralglenohumeral joints. Bones are osteopenic. No suspicious lytic or blasticlesions. IMPRESSION: 1. Interval decrease in density and conspicuity of right upper andbilateral lower lobe peribronchovascular consolidative and groundglassopacities, likely representing evolving organizing pneumonia. 2. No evidence of metastatic disease in the chest. ATTESTATION: Winnie Gonzales, as teaching physician have reviewed theimages, if any, for this patient's exam, and if necessary, have edited thereport originally created by Lisa Benedr. us Jacob Reza MD IM CT CHEST Final Result * (ABNORMAL) Comprehensive metabolic panel (04/01/2025 7:34 AM EDT) SODIUM 139 136 - 145 mmol/L [facility]# [id number] POTASSIUM 4.4 3.4 - 5.1 mmol/L [facility]# [id number] CHLORIDE 106 98 - 107 mmol/L [facility]# [id number] CO2 18(L) 22 - 31 mmol/L [facility]# [id number] BUN 15 6 - 23 mg/dL [facility]# [id number] CREATININE 1.09 0.50 - 1.20 mg/dL [facility]# [id number] GLUCOSE 98 70 - 100 mg/dL [facility]# [id number] ALBUMIN 4.0 3.5 - 5.2 g/dL [facility]# [id number] TOTAL PROTEIN 6.6 6.4 - 8.3 g/dL [facility]# [id number] CALCIUM 8.8 8.8 - 10.7 mg/dL [facility]# [id number] ALKALINE PHOSPHATASE 76 40 - 129 U/L [facility]# [id number] TOTAL BILIRUBIN 0.5 0.2 - 1.2 mg/dL [facility]# [id number] AST 24 <41 U/L [facility]# [id number] ALT 20 <42 U/L [facility]# [id number] GLOBULIN 2.6 2.3 - 4.2 g/dL [facility]# [id number] EGFR 72 >59 mL/min/1.7 3m2 [facility]# [id number] Comment:Estimated glomerular filtration rate calculated using the CKD-EPI refit equation. ANION GAP 15 7 - 17 mmol/L [facility]# [id number] Blood 04/01/2025 7:34 AM EDT 04/01/2025 7:35 AM EDT us Jacob Reza MD LAB BLOOD ORDERABLES Final Re sult [facility]# [id number] [address] [place] [address] * CBC and differential (04/01/2025 7:34 AM EDT) WBC 5.03 4.00 - 10.00 K/uL [facility]# [id number] RBC 5.05 4.50 - 6.40 M/uL [facility]# [id number] HGB 15.5 13.5 - 18.0 g/dL [facility]# [id number] HCT 44.5 40.0 - 54.0 % [facility]# [id number] PLT 173 150 - 450 K/uL [facility]# [id number] MCV 88.1 80.0 - 100.0 fL [facility]# [id number] MCH 30.7 27.0 - 32.0 pg [facility]# [id number] MCHC 34.8 32.0 - 36.0 g/dL [facility]# [id number] RDW 12.5 11.5 - 14.5 % [facility]# [id number] MPV 9.5 8.4 - 12.0 fL [facility]# [id number] NRBC 0.00 0.00 /100 WBCs [facility]# [id number] ABSOLUTE NRBC 0.00 0 K/uL [facility]# [id number] DIFF METHOD Auto [facility]# [id number] NEUTS 54.2 48.0 - 76.0 % [facility]# [id number] LYMPHS 35.8 18.0 - 41.0 % [facility]# [id number] MONOS 7.6 4.0 - 11.0 % [facility]# [id number] EOS 1.6 0.0 - 5.0 % [facility]# [id number] BASOS 0.4 0.00 - 1.50 % [facility]# [id number] % IMMATURE GRANS 0.4 0.00 - 1.00 % [facility]# [id number] ABSOLUTE NEUTS 2.73 1.92 - 7.60 K/uL [facility]# [id number] ABSOLUTE LYMPHS 1.80 0.72 - 4.10 K/uL [facility]# [id number] ABSOLUTE MONOS 0.38 0.16 - 1.10 K/uL [facility]# [id number] ABSOLUTE EOS 0.08 0.00 - 0.50 K/uL [facility]# [id number] ABSOLUTE BASOS 0.02 0.00 - 0.15 K/uL [facility]# [id number] ABS IMMATURE GRANS 0.02 0.00 - 0.10 K/uL [facility]# [id number] Blood 04/01/2025 7:34 AM EDT 04/01/2025 7:35 AM EDT us Jacob Reza MD LAB BLOOD ORDERABLES Final Re sult [facility]# [id number] [address] [place] [id number], [facility] * (ABNORMAL) Carcinoembryonic antigen (CEA) (04/01/2025 7:34 AM EDT) CEA 4.0(H) 0 - 3.7 ng/mL [facility]# [id number] Comment: CEA REFERENCE RANGE: NON-SMOKERS: < 3.8 ng/mL SMOKERS: < 5.0 ng/mL Blood 04/01/2025 7:34 AM EDT 04/01/2025 7:35 AM EDT us Jacob Reza MD LAB BLOOD ORDERABLES Final Re sult [facility]# [id number] [address] [place] [address] * CT ABDOMEN/PELVIS WITH CONTRAST (12/24/2024 4:19 PM EDT) Anatomical Region Laterality Modality Abdomen, Pelvis Computed Tomogra phy Other 12/25/2024 9:45 AM EDT Impressions 12/25/2024 11:35 AM EDT 1. No evidence of metastatic disease in the abdomen or pelvis. 2. Unchanged benign bilateral adrenal nodules, most likely adrenal cortical adenomas. The Radiologist Diagnostic Certainty Scale is a guide that conveys to patients and providers a radiologist's subjective diagnostic confidence: Most likely means very high probability Likely means high probability May represent means intermediate probability Unlikely means low probability Very unlikely means very low probability You can find out more about our efforts to improve the clarity of radiology reports for our patients and providers by visiting [email or web address] ATTESTATION: IJamie, as teaching physician have reviewed the images, if any, for this patient's exam, and if necessary, have edited the report originally created by William Mercer. Narrative 12/25/2024 11:[address] ABDOMEN/PELVIS WITH CONTRAST Referring clinician's provided indication for this examination in Epic: * Colon cancer, assess treatment response; s/p 6 cycles of FOLFOX TECHNIQUE: Multidetector-row CT of the abdomen and pelvis was performed after administration of intravenous contrast using tailored dose modulation techniques. Images were reconstructed in the axial, coronal, and sagittal planes. COMPARISON: NM PET CT SKULL BASE TO MID THIGHS ; CT ABDOMEN OUTSIDE (NO INTERPRETATION) ; CT ABDOMEN/PELVIS OUTSIDE (NO INTERPRETATION) FINDINGS: Lower Chest: CT chest from the same day is reported separately. Liver: No focal lesions. Biliary: No radiopaque gallstone or biliary ductal dilatation. Spleen: Normal. No splenomegaly or focal lesions. Pancreas: No masses or ductal dilatation. Adrenal Glands: Bilateral benign adrenocortical adenomas measuring 1.7 cm on the left (1:27) and 1.3 cm on the right (4:72), unchanged since 12/13/2022. Kidneys/Ureters: No solid masses, stones, or hydronephrosis. Bowel: Status post right steven-colectomy. No dilatation and wall thickening. Colonic diverticulosis. Peritoneum/Retroperitoneum: No masses, pneumoperitoneum, or fluid. Lymph Nodes: No enlarged lymph nodes. Pelvic Organs/Bladder: Underdistended bladder. Prostatomegaly. Vessels: No abdominal aortic aneurysm. Atherosclerosis. Bones/Soft Tissues: No destructive osseous lesions. Multilevel degenerative changes of the visualized spine. Postsurgical changes of anterior abdominal wall. Unchanged cutaneous nodule along the right lateral abdominal wall (1:30). Procedure Note Jamie Guevara MD, MPH - 12/25/2024 CT ABDOMEN/PELVIS WITH CONTRAST Referring clinician's provided indication for this examination in [facility]: *Colon cancer, assess treatment response; s/p 6 cycles of FOLFOX TECHNIQUE: Multidetector-row CT of the abdomen and pelvis was performedafter administration of intravenous contrast using tailored dosemodulation techniques. Images were reconstructed in the axial, coronal,and sagittal planes. COMPARISON: NM PET CT SKULL BASE TO MID THIGHS ; CT ABDOMENOUTSIDE (NO INTERPRETATION) ; CT ABDOMEN/PELVIS OUTSIDE (NOINTERPRETATION) FINDINGS: Lower Chest: CT chest from the same day is reported separately. Liver: No focal lesions. Biliary: No radiopaque gallstone or biliary ductal dilatation. Spleen: Normal. No splenomegaly or focal lesions. Pancreas: No masses or ductal dilatation. Adrenal Glands: Bilateral benign adrenocortical adenomas measuring 1.7 cmon the left (1:27) and 1.3 cm on the right (4:72), unchanged since12/13/2022. Kidneys/Ureters: No solid masses, stones, or hydronephrosis. Bowel: Status post right steven-colectomy. No dilatation and wallthickening. Colonic diverticulosis. Peritoneum/Retroperitoneum: No masses, pneumoperitoneum, or fluid. Lymph Nodes: No enlarged lymph nodes. Pelvic Organs/Bladder: Underdistended bladder. Prostatomegaly. Vessels: No abdominal aortic aneurysm. Atherosclerosis. Bones/Soft Tissues: No destructive osseous lesions. Multileveldegenerative changes of the visualized spine. Postsurgical changes ofanterior abdominal wall. Unchanged cutaneous nodule along the rightlateral abdominal wall (1:30). IMPRESSION: 1. No evidence of metastatic disease in the abdomen or pelvis. 2. Unchanged benign bilateral adrenal nodules, most likely adrenalcortical adenomas. The Radiologist Diagnostic Certainty Scale is a guide that conveys topatients and providers a radiologist's subjective diagnostic confidence: Most likely means very high probability Likely means high probability May represent means intermediate probability Unlikely means low probability Very unlikely means very low probability You can find out more about our efforts to improve the clarity ofradiology reports for our patients and providers by [email or web address] ATTESTATION: IJamie, as teaching physician have reviewed theimages, if any, for this patient's exam, and if necessary, have edited thereport originally created by William Mercer. us Jacob Reza MD IMG CT ABD/PELVIS Final Resul t from Last 3 Months or Most Recently Relevant to Health Maintenance Insurance [facility] PPO MEDICARE PART A & B Member Subscriber Plan / Payer ( fective 2017-Present) Name:Stephen Denise Member ID:[id number] Relation to Subscriber:Self Name:Stephen Denise Subscriber ID:[id number] Payer ID:[id number] Group ID:Not on file Type:Medicare Address: [facility] [address] [place] [id number] [employer] PPO MEDICARE PART A & B [employer] PPO MEDICARE PART A & B [employer] PPO MEDICARE PART A & B [employer] PPO MEDICARE PART A & B [facility] PPO MEDICARE PART A & B Advance Directives For more information, please contact: [phone] (9AM - 5PM [facility], Monday-Monday) * Full Code (Latest Code Status on File) Date Activated Date Inactivated Comments 07/12/2024 9:06 PM Question Answer Comments Code Status Confirmed With: Other (specify below ) Care Teams Cherry Cutter Relationship Specialty Start Date End Date Karissa Theodore MD [address] [facility] [address] [place] [address] PCP - General Internal Medicine 06/13/24 Self-Referred, Patient 05/28/24 Timothy Trotter MD [address] [place] [address] [email or web address] General Surgery 05/30/24 Jacob Reza MD [address] [place] [address] [email or web address] Medical Oncology 07/29/24 Gaye Rao RN [address] [place] [address] [email or web address] Primary Infusion Nurse 10/09/24 Tiffanie Vences, RN [address] [place] [address] [email or web address] Associate Infusion Nurse 11/19/24 Additional Source Comments The information contained in this document represents components of the legal health record. It is not the complete legal health record.[facility]
--- OUTSIDE RECORDS SUMMARY | 2025-05-13 11:08 | XMS_ITS | Encounter Summary ---
Author Organization [facility] Address [address] [place] [address] Phone Care Team Providers Care Diesel Engine Operator Name Role Phone Self-Referred, Patient Unavailable Unavailab Timothy Barahona MD Unavailable Karissa Theodore MD Primary Care Provider Jacob Reza MD Unavailable [phone] Gaye Rao RN Unavailable JACKIE [email or web address] Tiffanie Vences RN Unavailable STU [email or web address] Encounter Details Date Type Department Care Team (Late st Contact Info) Description 12/03/2024 Procedure Pass [facility] [place] [address] [facility] [address] [place] [address] Social History Tobacco Use Types Packs/Day Years [...] 8:10 AM EST Blood Draw Laboratory Services, [facility] [place] [facility] [place] [address] [facility] [address] [place] [address] Jacob Reza MD [address] [place] [address] Judith@[facility] 07/15/2025 9:00 AM EST Office Visit [facility], [facility] [place] [facility] [place] [address] [address] Jacob Reza MD 450 [place] [address] Judith@[facility] Scheduled Procedures Name Priority Associated Diagnoses Date/Ti me COLECTOMY RIGHT COMPLEX 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 Visit Diagnoses Not on filedocumented in this encounter Care Teams Diesel Engine Operator Relationship Specialty Start Date End Date Karissa Theodore MD [address] [place] [address] PCP - General Internal Medicine 06/13/24 Self-Referred, Patient 05/28/24 Timothy Trotter MD [address] [place] [address] GRICELDA@[email or web address] General Surgery 05/30/24 Jacob Reza MD 450 [place] [address] [email or web address] Medical Oncology 07/29/24 Gaye Rao RN 300 [place] [address] FRANCESCA@[email or web address] Primary Infusion Nurse 10/09/24 Tiffanie Vences, MECHE [address] [place] [address] JULIO@[email or web address] [address].[facility] Associate Infusion Nurse 11/19/24 documented as of this encounter Additional Source Comments The information contained in this document represents components of the legal health record. It is not the complete legal health record.[facility]
--- OUTSIDE RECORDS SUMMARY | 2025-05-13 11:08 | XMS_ITS | Encounter Summary ---
Author Organization [facility] Address [address] [place] [address] Phone Care Team Providers Care Cafeteria Server Name Role Phone Self-Referred, Patient Unavailable Unavailab Timothy Barahona MD Unavailable Karissa Theodore MD Primary Care Provider [phone] Jacob Reza MD Unavailable [phone] Gaye Rao RN Unavailable JACKIE [email or web address] Tiffanie Vences RN Unavailable STU [email or web address] Encounter Details Date Type Department Care Team (Late st Contact Info) Description 09/10/2024 Procedure Pass [facility] L[facility] PRU [address] [place] [address] Social History Tobacco Use Types Packs/Day Years [...] as food, clothing, or medical care? No 07/12/2024 In the past 12 months have y ou been in a relationship with a person who hurts, threatens, or tries to control you? No 07/12/2024 Are you denied basic needs s uch as food, clothing, or medical care? No 07/12/2024 In the past 12 months have y ou been in a relationship with a person who hurts, threatens, or tries to control you? No 07/12/2024 Sex and Gender Information Value Date Recorded Sex Assigned at Not on file Legal Sex Male 3:21 PM EDT Gender Identity Not on file Sexual Orientation Not on file documented as of this encounter Plan of Treatment Upcoming Encounters Date Type Department Care Team (Late st Contact Info) Description 07/15/2025 8:10 AM EST Blood Draw Laboratory Services, [facility] [place] [facility] [place] 300 [facility] [address] [place] [address] Jacob Reza MD [address] [place] [address] Judith@[email or web address] 07/15/2025 9:00 AM EST Office Visit [facility], [facility] [place] [facility] [place] [address] [address] Jacob Reza MD 450 [place] [address] Judith@[email or web address] Scheduled Procedures Name Priority Associated Diagnoses Date/Ti me COLECTOMY RIGHT COMPLEX 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 Visit Diagnoses Not on filedocumented in this encounter Care Teams Cafeteria Server Relationship Specialty Start Date End Date Karissa Theodore MD [address] [place] [address] PCP - General Internal Medicine 06/13/24 Self-Referred, Patient 05/28/24 Timothy Trotter MD [address] [place] [address] GRICELDA@[facility] General Surgery 05/30/24 Jacob Reza MD 450 [place] [address] Judith@[email or web address] Medical Oncology 07/29/24 Gaye Rao RN 300 [place] [address] FRANCESCA@[email or web address] [address].[facility] Primary Infusion Nurse 10/09/24 Tiffanie Vences, MECHE 300 [place] [address] JULIO@[email or web address] [address].[facility] Associate Infusion Nurse 11/19/24 documented as of this encounter Additional Source Comments The information contained in this document represents components of the legal health record. It is not the complete legal health record.[facility]
--- OUTSIDE RECORDS SUMMARY | 2025-05-13 11:08 | XMS_ITS ---
Author Name [facility] Organization Unknown Care Team Organization Name Specialty Phone Email Start Date End [facility] te [facility] Karissa Theodore Primary Care 01/02/2023 4
--- OUTSIDE RECORDS SUMMARY | 2025-05-13 11:08 | XMS_ITS | Encounter Summary ---
Author Organization [facility] Address [address] [place] [address] Phone Care Team Providers Care Press Tender Short Goods Name Role Phone Self-Referred, Patient Unavailable Unavailab Timothy Barahona MD Unavailable Karissa Theodore MD Primary Care Provider [phone] Jacob Reza MD Unavailable [phone] Gaye Rao RN Unavailable JACKIE Claudio@[email or web address].[facility] Tiffanie Vences RN Unavailable STU [email or web address].[facility] Encounter Details Date Type Department Care Team (Late st Contact Info) Description 06/13/2024 Procedure Pass [facility] [place] 300 [facility] [address] [place] [address] Social History Tobacco Use Types Packs/Day Years Used Date Smoking Tobacco: Never Assessed Child or Family Care Answer Date Record [...] got money to buy more. Never True 06/06/2024 Within the past 6 months the food we bought just didn't last and we didn't have enough money to get more. Never True Residential Stability Answer Date Recor ded What is your housing situation today? I have arleth jones 06/06/2024 How many times have you move d in the past 12 months? Zero (I did not move) 06/06/2024 Paying for Meds Answer Date Recorded Do you have trouble paying for medicines? No 06/06/2024 Paying Utility Bills Answer Date Record ed Do you have trouble paying your heating or elect ricity bill? No 06/06/2024 Transportation Answer Date Recorded Has the lack of transportati on kept you from medical appointments or from getting medications? No 06/06/2024 Digital Access Answer Date Recorded No 05/30/2024 No 05/30/2024 Reliable internet access at home? Not on file 05/30/2024 Device with a working camera? Not on file Sex and Gender Information Value Date Recorded Sex Assigned at Not on file Legal Sex Male 3:21 PM EDT Gender Identity Not on file Sexual Orientation Not on file documented as of this encounter Plan of Treatment Upcoming Encounters Date Type Department Care Team (Late st Contact Info) Description 07/15/2025 8:10 AM EST Blood Draw Laboratory Services, [facility] [place] at [address] [address] Jacob Reza MD [address] [place] [address] Judith@[email or web address]. [facility] 07/15/2025 9:00 AM EST Office Visit [facility], [facility] [place] at [address] [address] Jacob Reza MD 450 [place] [address] Judith@[email or web address]. 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 Visit Diagnoses Not on filedocumented in this encounter Care Teams Press Tender Short Goods Relationship Specialty Start Date End Date Karissa Theodore MD [address] [facility] [address] [place] [address] PCP - General Internal Medicine 06/13/24 Self-Referred, Patient 05/28/24 Timothy Trotter MD [address] [place] [address] GRICELDA@[email or web address] General Surgery 05/30/24 Jacob eRza MD 450 [place] [address] Judith@[facility] Medical Oncology 07/29/24 Gaye Rao RN 300 [place] [address] FRANCESCA@[email or web address] [address].[place] Primary Infusion Nurse 10/09/24 Tiffanie Vences RN 300 [place] [address] JULIO@[email or web address] [address].[place] Associate Infusion Nurse 11/19/24 documented as of this encounter Additional Source Comments The information contained in this document represents components of the legal health record. It is not the complete legal health record.[facility]
--- OUTSIDE RECORDS SUMMARY | 2025-05-13 11:08 | XMS_ITS | Encounter Summary ---
Author Organization [facility] Address [address] [place] [address] Phone Care Team Providers Care Cherry Picker Operator Name Role Phone Self-Referred, Patient Unavailable Unavailab Timothy Barahona MD Unavailable Karissa Theodore MD Primary Care Provider Jacob Reza MD Unavailable [phone] Gaye Rao RN Unavailable JACKIE Claudio@[email or web address] Tiffanie Vences RN Unavailable STU [email or web address].[facility] Encounter Details Date Type Department Care Team (Late st Contact Info) Description 12/03/2024 Procedure Pass [facility] [place] 300 [facility] [address] [place] [address] Social History Tobacco Use Types [...] 8:10 AM EST Blood Draw Laboratory Services, [facility] [place] [facility] [place] 300 [facility] [address] [place] [address] Jacob Reza MD 450 [place] [address] Judith@[facility] 07/15/2025 9:00 AM EST Office Visit [facility], [facility] [place] [facility] [place] [address] [address] Jacob Reza MD 450 [place] [address] Judith@[facility] Scheduled Procedures Name Priority Associated Diagnoses Date/Ti me COLECTOMY RIGHT COMPLEX 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 Visit Diagnoses Not on filedocumented in this encounter Care Teams Cherry Picker Operator Relationship Specialty Start Date End Date Karissa Theodore MD [address] [place] [address] PCP - General Internal Medicine 06/13/24 Self-Referred, Patient 05/28/24 Timothy Trotter MD [address] [place] [address] GRICELDA@[email or web address] General Surgery 05/30/24 Jacob Reza MD [address] [place] [address] Judith@[facility] Medical Oncology 07/29/24 Gaye Rao RN 300 [place] [address] FRANCESCA@[facility] Primary Infusion Nurse 10/09/24 Tiffanie Vences, MECHE [address] [place] [address] JULIO@[email or web address] [address].[facility] Associate Infusion Nurse 11/19/24 documented as of this encounter Additional Source Comments The information contained in this document represents components of the legal health record. It is not the complete legal health record.[facility]
--- OUTSIDE RECORDS SUMMARY | 2025-05-13 11:08 | XMS_ITS | Encounter Summary ---
Author Organization [facility] Address [address] [place] [address] Phone Care Team Providers Care Armored Vehicle Officer Name Role Phone Self-Referred, Patient Unavailable Unavailab Timothy Barahona MD Unavailable Karissa Theodore MD Primary Care Provider [phone] Jacob Reza MD Unavailable [phone] Gaye Rao RN Unavailable JACKIE [email or web address] Tiffanie Vences RN Unavailable STU [email or web address] Encounter Details Date Type Department Care Team (Late st Contact Info) Description 07/12/2024 Procedure Pass [facility] [address] [place] [address] Social History Tobacco Use Types Packs/Day Years Used Date Smoking Tobacco: Former Cigarettes - 1984 Smokeless Tobacco: Current Comments:Uses KEYSHAWN nicotine pouch daily Alcohol Use Standard Drinks/Week Comments Yes 5 (1 standard drink = 0.6 oz pur [...] on file documented as of this encounter Functional Status * Calculated C-SSRS Risk Score (Lifetime/Recent) Answer Date of Assessment Author No Risk Indicated 07/12/2024 3:32 PM Kishan Alicea, MECHE * Pershing Suicide Severity Rating Scale (Screener/Recent Self-Report) Question Answer Date of Assessment Author 1. Wish to be (Past 1 Month) No 024 3:32 PM Brenden Aliceag, MECHE 2. Non-Specific Active Suici gunjan Thoughts (Past 1 Month) No 07/12/2024 3:32 PM EST Brenden Gonzalez, MECHE 6. Suicidal Behavior (Lifetime) No 3:32 PM EST Brenden Gonzalez, RN documented as of this encounter Plan of Treatment Upcoming Encounters Date Type Department Care Team (Late st Contact Info) Description 07/15/2025 8:10 AM EST Blood Draw Laboratory Services, [facility] at [address] [address] Jacob Reza MD [address] [place] [address] Judith@[facility] 07/15/2025 9:00 AM EST Office Visit [facility], [facility] at [address] [address] Jacob Reza MD [address] [place] [address] Judith@[facility] Scheduled Procedures Name Priority Associated Diagnoses Date/Ti me COLECTOMY RIGHT COMPLEX 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 Visit Diagnoses Not on filedocumented in this encounter Care Teams Armored Vehicle Officer Relationship Specialty Start Date End Date Karissa Theodore MD [address] [place] [address] PCP - General Internal Medicine 06/13/24 Self-Referred, Patient 05/28/24 Timothy Trotter MD [address] [place] [address] [place] [address] GRICELDA@[email or web address] General Surgery 05/30/24 Jacob Reza MD [address] [place] [address] Judith@[email or web address] Medical Oncology 07/29/24 Gaye Rao RN 300 [place] [address] [email or web address] Primary Infusion Nurse 10/09/24 Tiffanie Vences, MECHE [address] [place] [address] JULIO@[email or web address] Associate Infusion Nurse 11/19/24 documented as of this encounter Additional Source Comments The information contained in this document represents components of the legal health record. It is not the complete legal health record.[facility]
--- OUTSIDE RECORDS SUMMARY | 2025-05-13 11:09 | XMS_ITS | Patient Health Record ---
Author Organization [facility] [address] Address [address] [place] [address] Care Team Providers Care Lock Setter Name Role Phone RUTHANN VIDAL Primary Care Provider [phone] RADHA STEEL Unavailable [phone] STEPH HURST Unavailable [phone] Allergies Allergen (clinical drug ingredient) Drug/Non Drug Allergy documented on EMR Reaction Allergy Type Onset Date Status Cat dander Cats (uncoded) Unknown Allergy 10/30/2019 Act cheng Perfume Perfume (uncoded) Unknown Allergy 10/30/2019 A ctive Results Component Value Reference Range Notes EKG Reviewed date:02/03/2025 01:41:01 PM Interpretation: Performing Lab: Notes/Report: ECGDiastolicBP 72 ECGDiastolicBP 72 ECGHr 65 ECGHr 68 ECGPRInterval 0 ECGPRInterval 0 ECGPWaveAxis 1 ECGPWaveAxis 1 ECGQRSDuration 92 ECGQRSDuration 92 ECGQrsWaveAxis 69 ECGQrsWaveAxis 67 ECGQTcInterval 398 ECGQTcInterval 396 ECGQTInterval 390 ECGQTInterval 382 ECGSystolicBP 120 ECGSystolicBP 120 ECGTWaveAxis 47 ECGTWaveAxis 46 RR_DiastolicBP 0 RR_DiastolicBP 0 RR_MaxRRInterval 0 RR_MaxRRInterval 0 RR_MeanHR 0 RR_MeanHR 0 RR_MeanRRInterval 0 RR_MeanRRInterval 0 RR_MinRRInterval 0 RR_MinRRInterval 0 RR_NumBeats 0 RR_NumBeats 0 RR_NumNormalBeats 0 RR_NumNormalBeats 0 RR_SystolicBP 0 RR_SystolicBP 0 EKG Reviewed date:02/03/2025 01:41:01 PM Interpretation: Performing Lab: Notes/Report: ECGDiastolicBP 72 ECGDiastolicBP 72 ECGHr 65 ECGHr 68 ECGPRInterval 0 ECGPRInterval 0 ECGPWaveAxis 1 ECGPWaveAxis 1 ECGQRSDuration 92 ECGQRSDuration 92 ECGQrsWaveAxis 69 ECGQrsWaveAxis 67 ECGQTcInterval 398 ECGQTcInterval 396 ECGQTInterval 390 ECGQTInterval 382 ECGSystolicBP 120 ECGSystolicBP 120 ECGTWaveAxis 47 ECGTWaveAxis 46 RR_DiastolicBP 0 RR_DiastolicBP 0 RR_MaxRRInterval 0 RR_MaxRRInterval 0 RR_MeanHR 0 RR_MeanHR 0 RR_MeanRRInterval 0 RR_MeanRRInterval 0 RR_MinRRInterval 0 RR_MinRRInterval 0 RR_NumBeats 0 RR_NumBeats 0 RR_NumNormalBeats 0 RR_NumNormalBeats 0 RR_SystolicBP 0 RR_SystolicBP 0 Reason For Referral Reason Colon cancer Diagnosis 1 Malignant neoplasm o f colon, unspecified (C18.9) Referral Organization [facility] [address] Referring Provider First Name RUTHANN Referring Provider Last Name VIDAL Referring Provider Speciality Internal M edicine Referred Provider Specialty Gastroentero logy Clinical Notes Anais Boyd 2023 02:37:53 PM >Confirmed with ptJune Diya 06/13 Referral Priority Routine Medications Medication SIG (Take, Route, Frequency, Duration) Notes Start Date End Date Status Lisinopril 20 MG TAKE 1 TABLET BY EVERY DAY; Duration: 90 Active Tamsulosin HCl 0.4 MG 1 capsule Orally O nce a day; Duration: 90 days Active Fluticasone Propionate 50 MCG/ACT SPRAY 1 SPRAY INTO EACH NOSTRIL EVERY DAY; Duration: 90 Active Eliquis 5 MG as directed Orally t wice a day Active LORazepam 0.5 MG Oral; Duration: 2 Days Active amLODIPine Besylate 10 MG TAKE 1 TABLET BY MOUTH EVERY DAY; Duration: 90 Active Hyoscyamine Sulfate ER 0.375 MG 1 tablet Orally every 12 hrs Active ProAir HFA 108 (90 Base) MCG/ACT 1 puff as needed Inhalation every 4 hrs; Duration: 30 days 08/31/2021 Active Levothyroxine Sodium 100 MCG TAKE 1 TABL ET BY MOUTH EVERY DAY IN THE MORNING ON EMPTY STOMACH; Duration: 90 Active Ventolin HFA 108 (90 Base) MCG/ACT 1 puff as needed Inhalation every 4 hrs; Duration: 30 days Active Problems Problem Type SNOMED Code ICD Code Onset Dates Problem Status W/U Status Risk Notes Problem Malignant neoplasm of colon (167658275) Malignant neoplasm of colon, unspecified (C18.9) Active confirmed Problem Vitamin B>12< deficiency anaemia (23682798) Vitamin B12 deficiency anemia, unspecified (D51.9) Active confirmed Problem Hyperlipidemia (69038111) Hyperlipidemia, unspecified (E78.5) Active confirmed Problem Essential hypertension (12629843) Essential (primary) hypertension (I10) Active confirmed Problem Adult health examination (749855151) Encounter for general adult medical examination without abnormal findings (Z00.00) Active confirmed Problem Diverticulitis (72916636) Diverticulitis (K57.92) Active confirmed Problem Hypothyroidism (85869671) Hypothyroidism, unspecified type (E03.9) Active confirmed Problem Benign prostatic hypertrophy without outflow obstruction (443161434) Benign prostatic hyperplasia, unspecified whether lower urinary tract symptoms present (N40.0) Active confirmed Problem Vitamin D deficiency (99185054) Vitamin D deficiency (E55.9) Active confirmed Problem Elevated PSA (654354524) Elevated PSA (R97.20) Active confirmed Problem Accelerated essential hypertension (23172912) Accelerated essential hypertension (I10) Active confirmed Problem Obesity (112097351) Obesity (BMI 30-39.9) (E66.9) Active confirmed Problem Screening for malignant neoplasm of lung (procedure) (796745826) Screening for lung cancer (Z12.2) Active confirmed Problem Hyperlipidemia (11228194) Hyperlipidemia (E78.5) Active confirmed Vital Signs Heart Rate 72 /min 02/03/2025 Blood pressure diastolic 72 mm Hg 02/03/2025 Oximetry 98 % 02/03/2025 Height 65 in 02/03/2025 Blood pressure systolic 120 mm Hg 02/03/2025 Weight 191.5 lbs 02/03/2025 BMI 31.86 kg/m2 02/03/2025 Encounters Encounter Location Date Provider Diagnosis [facility] [address] [address] 05/21/2024 TALAL VIDAL Essential (primary) hypertension I10 ; Hyperlipidemia, unspecified E78.5 ; Elevated PSA R97.20 ; Hypothyroidism, unspecified type E03.9 and Encounter for general adult medical examination without abnormal findings Z00.[address] [facility] [address] [place] [address] 02/03/2025 STEPH HURST Encounter for genera l adult medical examination without abnormal findings Z00.00 ; Encounter for screening for depression Z13.31 ; Encounter for screening for other disorder Z13.89 ; Obesity (BMI 30-39.9) E66.9 ; Other specified counseling Z71.89 ; Essential (primary) hypertension I10 ; Hyperlipidemia, unspecified E78.5 ; Malignant neoplasm of colon, unspecified C18.9 and Encounter for examination of blood pressure without abnormal findings Z01.30 [facility] [address] 05/27/2024 TALAL VIDAL [facility] [address] [address] 05/28/2024 TALAL VIDAL [facility] [address] [place] [address] 07/30/2024 TALAL VIDAL [facility] [address] [place] [address] 09/19/2024 TALAL VIDAL [facility] [address] [place] [address] 05/07/2025 STEPH HURST Assessments Encounter Date Diagnosis (ICD Code) Assessment Notes Treatment Notes Treatment Clinical Notes Section Notes 05/21/2024 Hyperlipidemia, unspecified (ICD-10 - E78.5) Stephen is 74 y/o male with a PMHx of HTN, HLD, hypothyroidism, vitamin D deficiency, and diverticulitis presenting to the office today for a follow-up. Patient is aware of slightly elevated LDL levels, states he does not want any medication for it. Discussed continuation of a healthy lifestyle, and supplemental vitamin D for his deficiency. Patient has colonoscopy set for tomorrow for colorectal cancer screening. Results of low-dose CT scan were reviewed, and revealed no pulmonary nodules. Last labs ~6 months ago, will order CBC, CMP, lipids, TSH, PSA. Patient is set to follow-up in 6 months to dicusss labs and assess medication and lifestyle adherence. 05/21/2024 Essential (primary) hypertension (ICD-10 - I10) Stephen is 74 y/o male with a PMHx of HTN, HLD, hypothyroidism, vitamin D deficiency, and diverticulitis presenting to the office today for a follow-up. Patient is aware of slightly elevated LDL levels, states he does not want any medication for it. Discussed continuation of a healthy lifestyle, and supplemental vitamin D for his deficiency. Patient has colonoscopy set for tomorrow for colorectal cancer screening. Results of low-dose CT scan were reviewed, and revealed no pulmonary nodules. Last labs ~6 months ago, will order CBC, CMP, lipids, TSH, PSA. Patient is set to follow-up in 6 months to dicusss labs and assess medication and lifestyle adherence. 02/03/2025 Encounter for general adult medical examination without abnormal findings (ICD-10 - Z00.00) Stephen is a 74-year-old male with a past medical history of hypertension, hyperlipidemia, asthma, seasonal allergies, hypothyroidism, arthritis, past medical history of skin cancer, diverticulitis, lipoma, colon cancer in remission with stage IIb colon cancer who presents to the office today for a Medicare wellness visit. #Health maintenance: Following with [facility] for colonoscopies as patient does have a history of colon cancer, last flu vaccine was 2020, shingles vaccine 2019, Tdap vaccine 2018, has 3 COVID shots, no RSV shots documented, states that he has had a DEXA scan completed, however no documentation of this. #History of colon cancer:Patient states that he is in full remission of colon cancer at this time. Patient does regularly follow with the [facility] [place] in [place]. Patient was previously seen in their office on 01/02/2025.. #Panic attack: Continue lorazepam as needed #Smoking history:CT chest12/24/24 states no ill-defined peribronchial vascular groundglass and nodular consolidative opacities in both lungs, may represent organizing pneumonia. Possibly drug-related. No convincing evidence of metastatic disease in the chest. #Atrial fibrillation: Patient noted to be in A-fib today on 02/03/2025: Reassuring that patient does follow with cardiology, he is anticoagulated on Eliquis 5 mg tablets twice daily.. Patient educated on ER protocol #Hyperlipidemia: Obtaining fasting blood work #Hypothyroidism: Continue levothyroxine sodium 100 mcg, obtaining fasting blood work #Hypertension: Continue amlodipine besylate 10 mg tablets, lisinopril 20 mg tablets Medicare Wellness Patient is here for a Medicare wellness visit. Complete paperwork was reviewed and updated and has been filed and scan. Depression screen completed. Alcohol AUDIT SCREEN completed. Obesity screen completed. Cardiovascular risk stratification screen completed. Cognition assessed and within reasonable limits Fall risk assessed Discussed healthcare proxy. Discussed [place] order for life sustaining treatment, end-of-life issues, intubation and resuscitation dialysis artificial nutrition and hydration is appropriate. Total time spent was 45 minutes with greater than 50% spent on counseling and coordinating care All questions have been answered to patient's satisfaction. Patient verbalized understanding of diagnosis and treatments explained. Advised to call sooner prior to next visit it any questions/concerns arise. Case discussed with Lyric HUDSON who reviewed the assessment and plan. Chart, medications, labs, vital signs reviewed. Dictation was accomplished with the use of [employer] voice recognition software, which is prone to medical misidentifications and grammatical errors. This are unintentional and the practitioner does try to identify and correct these, but some could still be present. Please do not hesitate to contact practitioner for clarification. 02/03/2025 Encounter for screening for depression (ICD-10 - Z13.31) Stephen is a 74-year-old male with a past medical history of hypertension, hyperlipidemia, asthma, seasonal allergies, hypothyroidism, arthritis, past medical history of skin cancer, diverticulitis, lipoma, colon cancer in remission with stage IIb colon cancer who presents to the office today for a Medicare wellness visit. #Health maintenance: Following with [facility] for colonoscopies as patient does have a history of colon cancer, last flu vaccine was 2020, shingles vaccine 2019, Tdap vaccine 2017, has 3 COVID shots, no RSV shots documented, states that he has had a DEXA scan completed, however no documentation of this. #History of colon cancer:Patient states that he is in full remission of colon cancer at this time. Patient [facility] [place] in [place]. Patient was previously seen in their office on 01/02/2025.. #Panic attack: Continue lorazepam as needed #Smoking history:CT chest12/24/24 states no ill-defined peribronchial vascular groundglass and nodular consolidative opacities in both lungs, may represent organizing pneumonia. Possibly drug-related. No convincing evidence of metastatic disease in the chest. #Atrial fibrillation: Patient noted to be in A-fib today on 02/03/2025: Reassuring that patient does follow with cardiology, he is anticoagulated on Eliquis 5 mg tablets twice daily.. Patient educated on ER protocol #Hyperlipidemia: Obtaining fasting blood work #Hypothyroidism: Continue levothyroxine sodium 100 mcg, obtaining fasting blood work #Hypertension: Continue amlodipine besylate 10 mg tablets, lisinopril 20 mg tablets Medicare Wellness Patient is here for a Medicare wellness visit. Complete paperwork was reviewed and updated and has been filed and scan. Depression screen completed. Alcohol AUDIT SCREEN completed. Obesity screen completed. Cardiovascular risk stratification screen completed. Cognition assessed and within reasonable limits Fall risk assessed Discussed healthcare proxy. Discussed [place] order for life sustaining treatment, end-of-life issues, intubation and resuscitation dialysis artificial nutrition and hydration is appropriate. Total time spent was 45 minutes with greater than 50% spent on counseling and coordinating care All questions have been answered to patient's satisfaction. Patient verbalized understanding of diagnosis and treatments explained. Advised to call sooner prior to next visit it any questions/concerns arise. Case discussed with Lyric HUDSON who reviewed the assessment and plan. Chart, medications, labs, vital signs reviewed. Dictation was accomplished with the use of [employer] voice recognition software, which is prone to medical misidentifications and grammatical errors. This are unintentional and the practitioner does try to identify and correct these, but some could still be present. Please do not hesitate to contact practitioner for clarification. 02/03/2025 Encounter for screening for other disorder (ICD-10 - Z13.89) Stephen is a 74-year-old male with a past medical history of hypertension, hyperlipidemia, asthma, seasonal allergies, hypothyroidism, arthritis, past medical history of skin cancer, diverticulitis, lipoma, colon cancer in remission with stage IIb colon cancer who presents to the office today for a Medicare wellness visit. #Health maintenance: Following with [facility] for colonoscopies as patient does have a history of colon cancer, last flu vaccine was 2021, shingles vaccine 2020, Tdap vaccine 2018, has 3 COVID shots, no RSV shots documented, states that he has had a DEXA scan completed, however no documentation of this. #History of colon cancer:Patient states that he is in full remission of colon cancer at this time. Patient does regularly follow with the [facility] [place] in [place]. Patient was previously seen in their office on 01/02/2025.. #Panic attack: Continue lorazepam as needed #Smoking history:CT chest12/24/24 states no ill-defined peribronchial vascular groundglass and nodular consolidative opacities in both lungs, may represent organizing pneumonia. Possibly drug-related. No convincing evidence of metastatic disease in the chest. #Atrial fibrillation: Patient noted to be in A-fib today on 02/03/2025: Reassuring that patient does follow with cardiology, he is anticoagulated on Eliquis 5 mg tablets twice daily.. Patient educated on ER protocol #Hyperlipidemia: Obtaining fasting blood work #Hypothyroidism: Continue levothyroxine sodium 100 mcg, obtaining fasting blood work #Hypertension: Continue amlodipine besylate 10 mg tablets, lisinopril 20 mg tablets Medicare Wellness Patient is here for a Medicare wellness visit. Complete paperwork was reviewed and updated and has been filed and scan. Depression screen completed. Alcohol AUDIT SCREEN completed. Obesity screen completed. Cardiovascular risk stratification screen completed. Cognition assessed and within reasonable limits Fall risk assessed Discussed healthcare proxy. Discussed [place] order for life sustaining treatment, end-of-life issues, intubation and resuscitation dialysis artificial nutrition and hydration is appropriate. Total time spent was 45 minutes with greater than 50% spent on counseling and coordinating care All questions have been answered to patient's satisfaction. Patient verbalized understanding of diagnosis and treatments explained. Advised to call sooner prior to next visit it any questions/concerns arise. Case discussed with Lyric HUDSON who reviewed the assessment and plan. Chart, medications, labs, vital signs reviewed. Dictation was accomplished with the use of [employer] voice recognition software, which is prone to medical misidentifications and grammatical errors. This are unintentional and the practitioner does try to identify and correct these, but some could still be present. Please do not hesitate to contact practitioner for clarification. 05/21/2024 Elevated PSA (ICD-10 - R97.20) Stephen is 74 y/o male with a PMHx of HTN, HLD, hypothyroidism, vitamin D deficiency, and diverticulitis presenting to the office today for a follow-up. Patient is aware of slightly elevated LDL levels, states he does not want any medication for it. Discussed continuation of a healthy lifestyle, and supplemental vitamin D for his deficiency. Patient has colonoscopy set for tomorrow for colorectal cancer screening. Results of low-dose CT scan were reviewed, and revealed no pulmonary nodules. Last labs ~6 months ago, will order CBC, CMP, lipids, TSH, PSA. Patient is set to follow-up in 6 months to dicusss labs and assess medication and lifestyle adherence. 02/03/2025 Obesity (BMI 30-39.9) (ICD-10 - E66.9) Stephen is a 74-year-old male with a past medical history of hypertension, hyperlipidemia, asthma, seasonal allergies, hypothyroidism, arthritis, past medical history of skin cancer, diverticulitis, lipoma, colon cancer in remission with stage IIb colon cancer who presents to the office today for a Medicare wellness visit. #Health maintenance: Following with [facility] for colonoscopies as patient does have a history of colon cancer, last flu vaccine was 2020, shingles vaccine 2019, Tdap vaccine 2018, has 3 COVID shots, no RSV shots documented, states that he has had a DEXA scan completed, however no documentation of this. #History of colon cancer:Patient states that he is in full remission of colon cancer at this time. Patient does regularly follow with the [facility] [place] in [place]. Patient was previously seen in their office on 01/02/2025.. #Panic attack: Continue lorazepam as needed #Smoking history:CT chest12/24/24 states no ill-defined peribronchial vascular groundglass and nodular consolidative opacities in both lungs, may represent organizing pneumonia. Possibly drug-related. No convincing evidence of metastatic disease in the chest. #Atrial fibrillation: Patient noted to be in A-fib today on 02/03/2025: Reassuring that patient does follow with cardiology, he is anticoagulated on Eliquis 5 mg tablets twice daily.. Patient educated on ER protocol #Hyperlipidemia: Obtaining fasting blood work #Hypothyroidism: Continue levothyroxine sodium 100 mcg, obtaining fasting blood work #Hypertension: Continue amlodipine besylate 10 mg tablets, lisinopril 20 mg tablets Medicare Wellness Patient is here for a Medicare wellness visit. Complete paperwork was reviewed and updated and has been filed and scan. Depression screen completed. Alcohol AUDIT SCREEN completed. Obesity screen completed. Cardiovascular risk stratification screen completed. Cognition assessed and within reasonable limits Fall risk assessed Discussed healthcare proxy. Discussed [place] order for life sustaining treatment, end-of-life issues, intubation and resuscitation dialysis artificial nutrition and hydration is appropriate. Total time spent was 45 minutes with greater than 50% spent on counseling and coordinating care All questions have been answered to patient's satisfaction. Patient verbalized understanding of diagnosis and treatments explained. Advised to call sooner prior to next visit it any questions/concerns arise. Case discussed with Lyric HUDSON who reviewed the assessment and plan. Chart, medications, labs, vital signs reviewed. Dictation was accomplished with the use of [employer] voice recognition software, which is prone to medical misidentifications and grammatical errors. This are unintentional and the practitioner does try to identify and correct these, but some could still be present. Please do not hesitate to contact practitioner for clarification. 02/03/2025 Other specified counseling (ICD-10 - Z71.89) Stephen is a 74-year-old male with a past medical history of hypertension, hyperlipidemia, asthma, seasonal allergies, hypothyroidism, arthritis, past medical history of skin cancer, diverticulitis, lipoma, colon cancer in remission with stage IIb colon cancer who presents to the office today for a Medicare wellness visit. #Health maintenance: Following with [facility] for colonoscopies as patient does have a history of colon cancer, last flu vaccine was 2020, shingles vaccine 2019, Tdap vaccine 2017, has 3 COVID shots, no RSV shots documented, states that he has had a DEXA scan completed, however no documentation of this. #History of colon cancer:Patient states that he is in full remission of colon cancer at this time. Patient does regularly follow [facility] [place] in [place]. Patient was previously seen in their office on 01/02/2025.. #Panic attack: Continue lorazepam as needed #Smoking history:CT chest12/24/24 states no ill-defined peribronchial vascular groundglass and nodular consolidative opacities in both lungs, may represent organizing pneumonia. Possibly drug-related. No convincing evidence of metastatic disease in the chest. #Atrial fibrillation: Patient noted to be in A-fib today on 02/03/2025: Reassuring that patient does follow with cardiology, he is anticoagulated on Eliquis 5 mg tablets twice daily.. Patient educated on ER protocol #Hyperlipidemia: Obtaining fasting blood work #Hypothyroidism: Continue levothyroxine sodium 100 mcg, obtaining fasting blood work #Hypertension: Continue amlodipine besylate 10 mg tablets, lisinopril 20 mg tablets Medicare Wellness Patient is here for a Medicare wellness visit. Complete paperwork was reviewed and updated and has been filed and scan. Depression screen completed. Alcohol AUDIT SCREEN completed. Obesity screen completed. Cardiovascular risk stratification screen completed. Cognition assessed and within reasonable limits Fall risk assessed Discussed healthcare proxy. Discussed [place] order for life sustaining treatment, end-of-life issues, intubation and resuscitation dialysis artificial nutrition and hydration is appropriate. Total time spent was 45 minutes with greater than 50% spent on counseling and coordinating care All questions have been answered to patient's satisfaction. Patient verbalized understanding of diagnosis and treatments explained. Advised to call sooner prior to next visit it any questions/concerns arise. Case discussed with Lyric HUDSON who reviewed the assessment and plan. Chart, medications, labs, vital signs reviewed. Dictation was accomplished with the use of [employer] voice recognition software, which is prone to medical misidentifications and grammatical errors. This are unintentional and the practitioner does try to identify and correct these, but some could still be present. Please do not hesitate to contact practitioner for clarification. 05/21/2024 Hypothyroidism, unspecified type (ICD-10 - E03.9) Stephen is 74 y/o male with a PMHx of HTN, HLD, hypothyroidism, vitamin D deficiency, and diverticulitis presenting to the office today for a follow-up. Patient is aware of slightly elevated LDL levels, states he does not want any medication for it. Discussed continuation of a healthy lifestyle, and supplemental vitamin D for his deficiency. Patient has colonoscopy set for tomorrow for colorectal cancer screening. Results of low-dose CT scan were reviewed, and revealed no pulmonary nodules. Last labs ~6 months ago, will order CBC, CMP, lipids, TSH, PSA. Patient is set to follow-up in 6 months to dicusss labs and assess medication and lifestyle adherence. 05/21/2024 Encounter for general adult medical examination without abnormal findings (ICD-10 - Z00.00) Stephen is 74 y/o male with a PMHx of HTN, HLD, hypothyroidism, vitamin D deficiency, and diverticulitis presenting to the office today for a follow-up. Patient is aware of slightly elevated LDL levels, states he does not want any medication for it. Discussed continuation of a healthy lifestyle, and supplemental vitamin D for his deficiency. Patient has colonoscopy set for tomorrow for colorectal cancer screening. Results of low-dose CT scan were reviewed, and revealed no pulmonary nodules. Last labs ~6 months ago, will order CBC, CMP, lipids, TSH, PSA. Patient is set to follow-up in 6 months to dicusss labs and assess medication and lifestyle adherence. 02/03/2025 Essential (primary) hypertension (ICD-10 - I10) Stephen is a 74-year-old male with a past medical history of hypertension, hyperlipidemia, asthma, seasonal allergies, hypothyroidism, arthritis, past medical history of skin cancer, diverticulitis, lipoma, colon cancer in remission with stage IIb colon cancer who presents to the office today for a Medicare wellness visit. #Health maintenance: Following with [facility] for colonoscopies as patient does have a history of colon cancer, last flu vaccine was 2020, shingles vaccine 2019, Tdap vaccine 2018, has 3 COVID shots, no RSV shots documented, states that he has had a DEXA scan completed, however no documentation of this. #History of colon cancer:Patient states that he is in full remission of colon cancer at this time. Patient does regularly follow with the [facility] [place] in [place]. Patient was previously seen in their office on 01/02/2025.. #Panic attack: Continue lorazepam as needed #Smoking history:CT chest12/24/24 states no ill-defined peribronchial vascular groundglass and nodular consolidative opacities in both lungs, may represent organizing pneumonia. Possibly drug-related. No convincing evidence of metastatic disease in the chest. #Atrial fibrillation: Patient noted to be in A-fib today on 02/03/2025: Reassuring that patient does follow with cardiology, he is anticoagulated on Eliquis 5 mg tablets twice daily.. Patient educated on ER protocol #Hyperlipidemia: Obtaining fasting blood work #Hypothyroidism: Continue levothyroxine sodium 100 mcg, obtaining fasting blood work #Hypertension: Continue amlodipine besylate 10 mg tablets, lisinopril 20 mg tablets Medicare Wellness Patient is here for a Medicare wellness visit. Complete paperwork was reviewed and updated and has been filed and scan. Depression screen completed. Alcohol AUDIT SCREEN completed. Obesity screen completed. Cardiovascular risk stratification screen completed. Cognition assessed and within reasonable limits Fall risk assessed Discussed healthcare proxy. Discussed [place] order for life sustaining treatment, end-of-life issues, intubation and resuscitation dialysis artificial nutrition and hydration is appropriate. Total time spent was 45 minutes with greater than 50% spent on counseling and coordinating care All questions have been answered to patient's satisfaction. Patient verbalized understanding of diagnosis and treatments explained. Advised to call sooner prior to next visit it any questions/concerns arise. Case discussed with Lyric HUDSON who reviewed the assessment and plan. Chart, medications, labs, vital signs reviewed. Dictation was accomplished with the use of [employer] voice recognition software, which is prone to medical misidentifications and grammatical errors. This are unintentional and the practitioner does try to identify and correct these, but some could still be present. Please do not hesitate to contact practitioner for clarification. 02/03/2025 Hyperlipidemia, unspecified (ICD-10 - E78.5) Stephen is a 74-year-old male with a past medical history of hypertension, hyperlipidemia, asthma, seasonal allergies, hypothyroidism, arthritis, past medical history of skin cancer, diverticulitis, lipoma, colon cancer in remission with stage IIb colon cancer who presents to the office today for a Medicare wellness visit. #Health maintenance: Following with [facility] for colonoscopies as patient does have a history of colon cancer, last flu vaccine was 2020, shingles vaccine 2019, Tdap vaccine 2017, has 3 COVID shots, no RSV shots documented, states that he has had a DEXA scan completed, however no documentation of this. #History of colon cancer:Patient states that he is in full remission of colon cancer at this time. Patient does regularly follow with [facility] [place] in [place]. Patient was previously seen in their office on 01/02/2025.. #Panic attack: Continue lorazepam as needed #Smoking history:CT chest12/24/24 states no ill-defined peribronchial vascular groundglass and nodular consolidative opacities in both lungs, may represent organizing pneumonia. Possibly drug-related. No convincing evidence of metastatic disease in the chest. #Atrial fibrillation: Patient noted to be in A-fib today on 02/03/2025: Reassuring that patient does follow with cardiology, he is anticoagulated on Eliquis 5 mg tablets twice daily.. Patient educated on ER protocol #Hyperlipidemia: Obtaining fasting blood work #Hypothyroidism: Continue levothyroxine sodium 100 mcg, obtaining fasting blood work #Hypertension: Continue amlodipine besylate 10 mg tablets, lisinopril 20 mg tablets Medicare Wellness Patient is here for a Medicare wellness visit. Complete paperwork was reviewed and updated and has been filed and scan. Depression screen completed. Alcohol AUDIT SCREEN completed. Obesity screen completed. Cardiovascular risk stratification screen completed. Cognition assessed and within reasonable limits Fall risk assessed Discussed healthcare proxy. Discussed [place] order for life sustaining treatment, end-of-life issues, intubation and resuscitation dialysis artificial nutrition and hydration is appropriate. Total time spent was 45 minutes with greater than 50% spent on counseling and coordinating care All questions have been answered to patient's satisfaction. Patient verbalized understanding of diagnosis and treatments explained. Advised to call sooner prior to next visit it any questions/concerns arise. Case discussed with Lyric HUDSON who reviewed the assessment and plan. Chart, medications, labs, vital signs reviewed. Dictation was accomplished with the use of [employer] voice recognition software, which is prone to medical misidentifications and grammatical errors. This are unintentional and the practitioner does try to identify and correct these, but some could still be present. Please do not hesitate to contact practitioner for clarification. 02/03/2025 Malignant neoplasm of colon, unspecified (ICD-10 - C18.9) Stephen is a 74-year-old male with a past medical history of hypertension, hyperlipidemia, asthma, seasonal allergies, hypothyroidism, arthritis, past medical history of skin cancer, diverticulitis, lipoma, colon cancer in remission with stage IIb colon cancer who presents to the office today for a Medicare wellness visit. #Health maintenance: Following with [facility] for colonoscopies as patient does have a history of colon cancer, last flu vaccine was 2020, shingles vaccine 2019, Tdap vaccine 2017, has 3 COVID shots, no RSV shots documented, states that he has had a DEXA scan completed, however no documentation of this. #History of colon cancer:Patient states that he is in full remission of colon cancer at this time. Patient does regularly follow with the [facility] [place] in [place]. Patient was previously seen in their office on 01/02/2025.. #Panic attack: Continue lorazepam as needed #Smoking history:CT chest12/24/24 states no ill-defined peribronchial vascular groundglass and nodular consolidative opacities in both lungs, may represent organizing pneumonia. Possibly drug-related. No convincing evidence of metastatic disease in the chest. #Atrial fibrillation: Patient noted to be in A-fib today on 02/03/2025: Reassuring that patient does follow with cardiology, he is anticoagulated on Eliquis 5 mg tablets twice daily.. Patient educated on ER protocol #Hyperlipidemia: Obtaining fasting blood work #Hypothyroidism: Continue levothyroxine sodium 100 mcg, obtaining fasting blood work #Hypertension: Continue amlodipine besylate 10 mg tablets, lisinopril 20 mg tablets Medicare Wellness Patient is here for a Medicare wellness visit. Complete paperwork was reviewed and updated and has been filed and scan. Depression screen completed. Alcohol AUDIT SCREEN completed. Obesity screen completed. Cardiovascular risk stratification screen completed. Cognition assessed and within reasonable limits Fall risk assessed Discussed healthcare proxy. Discussed [place] order for life sustaining treatment, end-of-life issues, intubation and resuscitation dialysis artificial nutrition and hydration is appropriate. Total time spent was 45 minutes with greater than 50% spent on counseling and coordinating care All questions have been answered to patient's satisfaction. Patient verbalized understanding of diagnosis and treatments explained. Advised to call sooner prior to next visit it any questions/concerns arise. Case discussed with Lyric HUDSON who reviewed the assessment and plan. Chart, medications, labs, vital signs reviewed. Dictation was accomplished with the use of [employer] voice recognition software, which is prone to medical misidentifications and grammatical errors. This are unintentional and the practitioner does try to identify and correct these, but some could still be present. Please do not hesitate to contact practitioner for clarification. 02/03/2025 Encounter for examination of blood pressure without abnormal findings (ICD-10 - Z01.30) Stephen is a 74-year-old male with a past medical history of hypertension, hyperlipidemia, asthma, seasonal allergies, hypothyroidism, arthritis, past medical history of skin cancer, diverticulitis, lipoma, colon cancer in remission with stage IIb colon cancer who presents to the office today for a Medicare wellness visit. #Health maintenance: Following with [facility] for colonoscopies as patient does have a history of colon cancer, last flu vaccine was 2020, shingles vaccine 2020, Tdap vaccine 2018, has 3 COVID shots, no RSV shots documented, states that he has had a DEXA scan completed, however no documentation of this. #History of colon cancer:Patient states that he is in full remission of colon cancer at this time. Patient does regularly follow with the [facility] [place] in [place]. Patient was previously seen in their office on 01/02/2025.. #Panic attack: Continue lorazepam as needed #Smoking history:CT chest12/24/24 states no ill-defined peribronchial vascular groundglass and nodular consolidative opacities in both lungs, may represent organizing pneumonia. Possibly drug-related. No convincing evidence of metastatic disease in the chest. #Atrial fibrillation: Patient noted to be in A-fib today on 02/03/2025: Reassuring that patient does follow with cardiology, he is anticoagulated on Eliquis 5 mg tablets twice daily.. Patient educated on ER protocol #Hyperlipidemia: Obtaining fasting blood work #Hypothyroidism: Continue levothyroxine sodium 100 mcg, obtaining fasting blood work #Hypertension: Continue amlodipine besylate 10 mg tablets, lisinopril 20 mg tablets Medicare Wellness Patient is here for a Medicare wellness visit. Complete paperwork was reviewed and updated and has been filed and scan. Depression screen completed. Alcohol AUDIT SCREEN completed. Obesity screen completed. Cardiovascular risk stratification screen completed. Cognition assessed and within reasonable limits Fall risk assessed Discussed healthcare proxy. Discussed [place] order for life sustaining treatment, end-of-life issues, intubation and resuscitation dialysis artificial nutrition and hydration is appropriate. Total time spent was 45 minutes with greater than 50% spent on counseling and coordinating care All questions have been answered to patient's satisfaction. Patient verbalized understanding of diagnosis and treatments explained. Advised to call sooner prior to next visit it any questions/concerns arise. Case discussed with Lyric HUDSON who reviewed the assessment and plan. Chart, medications, labs, vital signs reviewed. Dictation was accomplished with the use of [employer] voice recognition software, which is prone to medical misidentifications and grammatical errors. This are unintentional and the practitioner does try to identify and correct these, but some could still be present. Please do not hesitate to contact practitioner for clarification. Plan Of Treatment Pending Test Test Name Order Date TSH 09/23/2020 Lipid Panel 09/23/2020 CBC 09/23/2020 25OH VITAMIN D 09/23/2020 25OH VITAMIN D 11/21/2023 CBC (COMPLETE BLOOD COUNT) WITH DIFF COMPREHENSIVE METABOLIC PANEL 11/21/2023 LIPID PANEL 11/21/2023 URINALYSIS W/REFLEX CULTURE 11/21/2023 CT Abd and Pelvis w/o Contrast LIPID PANEL, STANDARD 09/22/2021 LIPID PANEL, STANDARD 05/21/2024 LIPID PANEL, STANDARD 02/03/2025 COMPREHENSIVE METABOLIC PANEL 02/03/2025 COMPREHENSIVE METABOLIC PANEL 05/21/2024 CBC (INCLUDES DIFF/PLT) 05/21/2024 CBC (INCLUDES DIFF/PLT) 02/03/2025 URINALYSIS, COMPLETE 02/03/2025 HEMOGLOBIN A1c 02/03/2025 VITAMIN B12 02/03/2025 PSA (FREE AND TOTAL) 05/21/2024 PSA (FREE AND TOTAL) 02/03/2025 PSA (FREE AND TOTAL) 09/22/2021 TSH 05/21/2024 TSH W/REFLEX TO FT4 11/21/2023 VITAMIN D,25-OH,TOTAL,IA 09/22/2021 VITAMIN D,25-OH,TOTAL,IA 02/03/2025 FECAL GLOBIN BY IMMUNOCHEMISTRY 05/16/[address] Low Dose Lung Screening 11/21/2023 TSH+T3+Free T4+T3 Free 02/03/2025 Next Appt Details Provider Name:STEPH HURST, 08:00:00 AM, [address], [place], [address], Insurance Providers Payer Name Payer Address Payer Phone Subscriber Number Group Number Insured Name Patient Relationship to Insured Coverage Start Date Coverage End Date Cigna [address] Johnny shah, [place] [address] [phone] [id number] STEPHEN POLLACK Self - patient is the insured 6 Medicare Part B J14 [address] [place] [id number] STEPHEN POLLACK Self - patient is the insured 7 Medical (General) History Medical History History ICD Code hypertension hyperlipidemia asthma seasonal allergies thyroid disease Arthritis skin cancer diverticulitis lipoma Colon Cancer in remission 2023 Stage IIb Surgical History Surgery Date(Month/Year) Disk removal - 2 from lower back 06/2015 hernia 1968 lipoma removal 01/2023 Partial colectomy 2023 Hospitalization History Reason Date(Month/Year) Colectomy 2023
--- OUTSIDE RECORDS SUMMARY | 2025-05-13 11:09 | XMS_ITS | Encounter Summary ---
Author Organization [facility] Address [address] [place] [address] Phone Care Team Providers Care Retail Sales Representative Name Role Phone Self-Referred, Patient Unavailable Unavailab Timothy Barahona MD Unavailable Karissa Theodore MD Primary Care Provider Jacob Reza MD Unavailable [phone] Gaye Rao RN Unavailable [email or web address] Tiffanie Vences RN Unavailable [email or web address] Encounter Details Date Type Department Care Team (Late st Contact Info) Description 12/31/2024 Procedure Pass [facility] [place] [facility] [place] [place] [address] [facility] [address] [place] [address] Social History Tobacco Use Types [...] 8:10 AM EST Blood Draw Laboratory Services, [facility] [place] [facility] [place] [address] [facility] [address] [place] [address] Jacob Reza MD [address] [place] [address] [email or web address] 07/15/2025 9:00 AM EST Office [facility], [facility] [place] [facility] [place] [address] [address] Jacob Reza MD [address] [place] [address] [email or web address] Scheduled Procedures Name Priority Associated Diagnoses Date/Ti me COLECTOMY RIGHT COMPLEX 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 Visit Diagnoses Not on filedocumented in this encounter Care Teams Retail Sales Representative Relationship Specialty Start Date End Date Karissa Theodore MD [address] [place] [id number] PCP - General Internal Medicine 06/13/24 Self-Referred, Patient 05/28/24 Timothy Trotter MD [address] [place] [address] [email or web address] General Surgery 05/30/24 Jacob Reza MD [address] [place] [address] [email or web address] 07/29/24 Gaye Rao RN [address] [place] [address] [email or web address] Primary Infusion Nurse 10/09/24 Tiffanie Vences, MECHE [address] [place] [address] [email or web address] Associate Infusion Nurse 11/19/24 documented as of this encounter Additional Source Comments The information contained in this document represents components of the legal health record. It is not the complete legal health record.[facility]
--- OUTSIDE RECORDS SUMMARY | 2025-05-13 11:09 | XMS_ITS ---
Author Organization [facility] Address [address] [place] [address] [place] [phone] Phone Care Team Providers Care Mechanical Development Engineer Name Role Phone Self-Referred, Patient Unavailable Unavailab Timothy Barahona MD Unavailable Karissa Theodore MD Primary Care Provider Jacob Reza MD Unavailable [phone] Gaye Rao RN Unavailable [email or web address] Tiffanie Vences RN Unavailable [email or web address] Active Problems Patient Care Coordination No te Formatting of this note migh t be different from the original. [facility] : Tele_ [phone] Fax- [phone] Problem Noted Date Diagnosed Date Vitamin D [...] (09/10/2024): A fib found at colonoscopy 2023 Current Treatment and Therapy Plans ACCESS AND FLUSH??(DFCI)* Plan Start Date:11/19/2024 Plan Provider:Darleen Evans CNP Linked Problems Malignant neoplasm of colon, unspecified part of colon Treatment Medications No medications scheduled. HYDRATION & SUPPORTIVE CARE* Plan Start Date:12/15/2024 Plan Provider:Darleen Evans CNP Linked Problems Malignant neoplasm of colon, unspecified part of colon Treatment Medications No medications scheduled. Past Treatment and Therapy Plans TREATMENT PLAN Plan Name Start Date Discontinue Date Treatment Medications Discontinue Reason Plan Provider Cycles OXALIPLA TIN/FLUO ROURACIL 1200 MG/M2/LE UCOVORIN 10/08/2024 12/31/2024 fluorouraciL (ADRUCIL)fluorou racil (ADRUCIL) CADD pump infusion (24-46 hr AND dose < 4700 mg) (94 mL)oxaliplatin (ELOXATIN) IVPB a. Therapy Complete Jacob Reza MD 6 of 6 cycles completed
[2025-06-30 10:28] VITALS: BMI 34.7
--- NOTE | 2025-06-30 12:06 | HO.ANESPROP2 ---
Documented by User: Sheryl Merrill NP 06/30/25 12:07 HPI - Anesthesia Eval Consult details Narrative: 75yo M for Colonoscopy PMFSH Active Problems Active Problems: All Active Problems Colon cancer (Acute) Past Medical History Medical History Afib Neuropathy Colon cancer History of lipoma (~01/2023) History of diverticulosis Elevated PSA Hypothyroidism IBS (irritable bowel syndrome) HTN (hypertension) Asthma Family History Family history of problems with anesthesia: No Surgical History Surgical History Hx of removal of cyst History of colon resection Hx of umbilical hernia repair Hx of bilateral inguinal hernia repair Hx of spinal fusion (~05/2014) Hx of hernia repair Hx of prostate biopsy Hx of colonoscopy History of Problems with Anesthesia: No Social History Social History Are you a primary healthcare customer service to a significant other at home: No Do you presently have visiting nurse or other home services: No Patient Tobacco Use Status: Former Tobacco user Use of substances other than those prescribed or required for medical reasons: No Are you DNR?: No Advance Directives: No Advance Directives Information Provided: Yes Meds Allergies Allergy/AdvReac Type Severity Reaction Status Date / Time No Known Allergies (No Known Allergy Verified 07/02/25 06:35 Allergies*) Home Medications ?Medication ?Instructions ?Recorded ?Confirmed ?Last Taken ?Type amlodipine 10 mg tablet 10 mg PO DAILY 05/20/24 07/02/25 07/02/25 06:00 History hyoscyamine sulfate 0.375 mg 0.375 mg PO BID PRN Abdominal 05/20/24 07/02/25 Unknown History tablet,extended release,12 hr Discomfort levothyroxine 100 mcg tablet 100 mcg PO DAILY 05/20/24 07/02/25 07/02/25 06:00 History lisinopril 20 mg tablet 20 mg PO DAILY 05/20/24 07/02/25 07/02/25 06:00 History tamsulosin 0.4 mg capsule 0.4 mg PO DAILY 05/20/24 07/02/25 07/02/25 06:00 History albuterol sulfate 90 mcg/actuation 2 puff inhalation Q4-6H PRN 06/30/25 07/02/25 Unknown History aerosol inhaler (Ventolin HFA) Shortness Of Breath Or Wheezing apixaban 5 mg tablet (Eliquis) 5 mg PO BID 07/02/25 07/02/25 06/26/25 History Exam Height,Weight and Vital Signs: Height 5 ft 5 in Weight 94.71 kg Assessment and Plan Assessment Anesthesia Assessment: Chart Reviewed Final Anesthetic Review Family History of Problems with Anesthesia: No History of Problems with Anesthesia: No Documented by User: Lexi Deluca MD 07/02/25 07:24 [facility] Past Medical History Medical History Afib Neuropathy Colon cancer History of lipoma (~01/2023) History of diverticulosis Elevated PSA Hypothyroidism IBS (irritable bowel syndrome) HTN (hypertension) Asthma Surgical History Surgical History Hx of removal of cyst History of colon resection Hx of umbilical hernia repair Hx of bilateral inguinal hernia repair Hx of spinal fusion (~05/2014) Hx of hernia repair Hx of prostate biopsy Hx of colonoscopy Social History Social History Are you a primary healthcare customer service to a significant other at home: No Do you presently have visiting nurse or other home services: No Patient Tobacco Use Status: Former Tobacco user Use of substances other than those prescribed or required for medical reasons: No Are you DNR?: No Advance Directives: No Advance Directives Information Provided: Yes Meds Allergies Allergy/AdvReac Type Severity Reaction Status Date / Time No Known Allergies (No Known Allergy Verified 07/02/25 06:35 Allergies*) Home Medications ?Medication ?Instructions ?Recorded ?Confirmed ?Last Taken ?Type amlodipine 10 mg tablet 10 mg PO DAILY 05/20/24 07/02/25 07/02/25 06:00 History hyoscyamine sulfate 0.375 mg 0.375 mg PO BID PRN Abdominal 05/20/24 07/02/25 Unknown History tablet,extended release,12 hr Discomfort levothyroxine 100 mcg tablet 100 mcg PO DAILY 05/20/24 07/02/25 07/02/25 06:00 History lisinopril 20 mg tablet 20 mg PO DAILY 05/20/24 07/02/25 07/02/25 06:00 History tamsulosin 0.4 mg capsule 0.4 mg PO DAILY 05/20/24 07/02/25 07/02/25 06:00 History albuterol sulfate 90 mcg/actuation 2 puff inhalation Q4-6H PRN 06/30/25 07/02/25 Unknown History aerosol inhaler (Ventolin HFA) Shortness Of Breath Or Wheezing apixaban 5 mg tablet (Eliquis) 5 mg PO BID 07/02/25 07/02/25 06/26/25 History Exam Airway Mallampati Class: III (edentulous upper) TM Dist: >3cm Neck ROM: Full Denture: Upper Loose/Missing/Broken Teeth: Yes and Upper Heart: RRR Lungs: CTA Assessment and Plan Assessment Anesthesia Assessment: Anesthesia Plan Discussed Final Anesthetic Review NPO: Yes ASA Class: III Final Preanesthetic Review: Meds/Allgs Chart Reviewed, Consent Obtained/Reviewed and Anes Risks/Benef Reviewed Patient Risk: Intermediate Procedure Risk: Low Anesthetic Plan Anesthetic Plan: MAC: Disposition: Standard PACU
[2025-07-02 06:45] VITALS: BP 137/74; PULSE 67; RESP 15; TEMP 36.3; O2SAT 97
[2025-07-02] MEDS: Lactated Ringers 1,000 ML 100 ML IVCONT (06:58)
[2025-07-02 08:34] VITALS: BP 86/51; PULSE 79; RESP 15; TEMP 36.8
[2025-07-02 08:39] VITALS: BP 95/59
--- NOTE | 2025-07-02 08:39 | P.BOP_ITS ---
Brief Operative Note Date of Service: 07/02/25 Pre-op diagnosis: Screening Post-op diagnosis: other (Diverticulosis) Procedure: Colonoscopy to the anastomosis and SI Surgeon: Ayo Fatima MD Anesthesia: MAC Was an Hospitality Specialist used for this Procedure?: No Estimated blood loss (mL): 0 Pathology: none sent Condition: stable Disposition: PACU
[2025-07-02 08:49] VITALS: BP 102/69; PULSE 82; RESP 15; TEMP 36.1; O2SAT 95
--- NOTE | 2025-07-02 09:27 | OP_ITS ---
DATE OF SERVICE: 07/02/2025 SURGEON: Ayo Fatima MD INDICATIONS: The patient presents for followup of personal history of colon cancer, personal history of colon polyps, family history of colon cancer, and colorectal cancer screening. Full consent has been obtained from him for this, including risks of bleeding and perforation. PREOPERATIVE DIAGNOSIS: POSTOPERATIVE DIAGNOSIS: PROCEDURE PERFORMED: Colonoscopy to the anastomosis and small bowel. ESTIMATED BLOOD LOSS: COMPLICATIONS: ANESTHESIA: Medication used, monitored anesthesia care. ASSISTANTS: SPECIMENS: PREOPERATIVE DIAGNOSES: Colorectal cancer screening, personal history of colon cancer, family history of colon cancer, personal history of colon polyps. POSTOPERATIVE DIAGNOSES: Colorectal cancer screening, personal history of colon cancer, family history of colon cancer, personal history of colon polyps, diverticulosis, and internal hemorrhoids. DESCRIPTION OF PROCEDURE: The patient was placed in the left lateral decubitus position. The Olympus video pediatric colonoscope was entered into the rectum and advanced easily to the region of the anastomosis, which was at approximately 70 cm to 80 cm. The anastomosis was well visualized and appeared normal. The small bowel was cannulated and appeared normal. The scope was withdrawn back in the colon. A single staple was seen at the anastomosis. There was no sign of any inflammation nor stricture. The scope was then slowly withdrawn assessing all mucosal surfaces carefully. For the most part, preparation was excellent after a lot of irrigation and suctioning. There was significant diverticulosis throughout the descending and sigmoid colon. I did not visualize any sign of polyps, colitis, nor angiodysplasia. In the rectum the scope was retroflexed visualizing some internal hemorrhoids but no other pathology. The rectal mucosa appeared normal. The scope was straightened and withdrawn from the patient. He tolerated the procedure well and was returned to the recovery area in stable condition. IMPRESSION: 1. Diverticulosis. 2. Internal hemorrhoids. 3. Normal anastomosis. PLAN: I would recommend a repeat colonoscopy in 1 year for further screening and surveillance. He was advised to resume his Eliquis today. He will otherwise see me as needed. This has been discussed with his . MD KIT Ocampo/FRIDA / [id number]
== END 2025-07-02 09:20 | disposition home or self-care (01) ==
PROVIDERS: Visit Provider Internal Medicine
PROC: 0DJD8ZZ Inspection of Lower Intestinal Tract, Via Natural or Artificial Opening Endoscopic (ICD-10-PCS; CPT 45378; principal; 2025-07-02 07:30)
DX: Z12.11 Encounter for screening for malignant neoplasm of colon (principal); Z85.038 Personal history of other malignant neoplasm of large intestine; Z80.0 Family history of malignant neoplasm of digestive organs; Z86.0101 Personal history of adenomatous and serrated colon polyps; Z90.49 Acquired absence of other specified parts of digestive tract; Z98.0 Intestinal bypass and anastomosis status; Z92.21 Personal history of antineoplastic chemotherapy; K57.30 Diverticulosis of large intestine without perforation or abscess without bleeding; K64.8 Other hemorrhoids; K58.9 Irritable bowel syndrome, unspecified; I10 Essential (primary) hypertension; E03.9 Hypothyroidism, unspecified; I48.91 Unspecified atrial fibrillation; J45.909 Unspecified asthma, uncomplicated; Z79.01 Long term (current) use of anticoagulants; Z79.899 Other long term (current) drug therapy; Z98.1 Arthrodesis status; Z98.890 Other specified postprocedural states; Z87.891 Personal history of nicotine dependence
CPT/HCPCS: G0105; J2704